=== PATIENT | female | born 1955 | race Caucasian/White ===

== ENCOUNTER 2016-06-22 09:50 | Day surgery (SDC) | payer BC ==
[~2016-06-22] VITALS: Ht 172.7 cm; Wt 94.2 kg
[~2016-06-22 09:50] MED LIST: ASPI-557 PO; LIDOCAINE 1% (10mg/ml) 2ml SDV INJ ONE; LR 1,000 ML IV SCH; PANT40TA27 PO
--- OUTSIDE RECORDS SUMMARY | 2016-06-22 09:54 | XMS REPORT | Summary of Care ---
Author Author Jeffrey Gomes M.D. Organization Unknown Address [address], [place] [id number] Phone Unavailable Care Team Providers Care Balloon Tester Name Role Phone Jeffrey Gomes M.D. Unavailable Unavailable Yazan Felix M.D. Unavailable Unavailable Sharan Cruz, Tata Unavailable Unavailable Figueroa Gomes PP Unavailable Unavailable Unavailable Functional Status Functional Status Health Issues* Name Dates Details Functional status health issues are not documented Status: Cognitive Status Health Issues* Name Dates Details Cognitive status health issues are not documented Status: Problems Name Dates Details Postmenopausal status (V49.81, Z78.0) Status: Active Insomnia (780.52, G47.00) Status: Active Arthralgia of multiple sites (719.49, M25.50) Status: Active Migraine headache (346.90, G43.909) Status: Active Allergic rhinitis (477.9, J30.9) Status: Active Esophageal reflux (530.81, K21.9) Status: Active Osteoarthritis of knee (715.36, M17.9) Status: Active Postmenopausal atrophic vaginitis (627.3, N95.2) Status: Active Eustachian tube dysfunction (381.81, H69.80) Status: Active Dyspepsia (536.8, K30) Status: Active Hypercholesterolemia (272.0, E78.0) Status: Active Dysphagia (787.20, R13.10) Status: Active Esophageal stricture (530.3, K22.2) Status: Active Tendonitis of wrist, left (727.05, M77.8) Status: Active Extensor tenosynovitis of left wrist (727.05, M65.842) Status: Active Obesity (278.00, E66.9) Status: Active Medications Name Dates Details Pantoprazole Sodium 40 MG Oral Tablet Delayed Release take one tablet by mouth every day Quantity: 30 Yazan Felix M.D.* Started 15-Nov-2010 ActiveCalcium + D 600-200 MG-UNIT TABS one tablet twice daily * Quantity: 90 Refills: 6 Kalpana Tasng M.D.* Started 15-Mar-2011 ActiveVitamin D 1000 UNIT Oral Tablet take 2 tabs dailly * Quantity: 60 Refills: 6 Kalpana Tsang M.D.* Started 15-Mar-2011 ActiveExcedrin Migraine 250-250-65 MG Oral Tablet use prn * Quantity: 60 Refills: 2 Kalpana Tsang M.D.* Started 24-Mar-2012 ActiveFluticasone Propionate 50 MCG/ACT Nasal Suspension USE 1 SPRAY IN EACH NOSTRIL TWICE DAILY. * Quantity: 1 Refills: 3 Kalpana Tsang M.D.* Started 24-Mar-2012 ActiveTylenol PM Extra Strength 500-25 MG Oral Tablet TAKE 1 TABLET Bedtime * Quantity: 30 Refills: 0 Kalpana Tsang M.D.* Started 24-Mar-2012 ActiveMucinex 600 MG Oral Tablet Extended Release 12 Hour TAKE 2 TABLETS EVERY 12 HOURS. * Quantity: 30 Refills: 6 Kalpana Tsang M.D.* Started 24-Mar-2012 ActiveZyrTEC Allergy 10 MG Oral Tablet TAKE 1 TABLET DAILY. * Quantity: 30 Refills: 6 Kalpana Tsang M.D.* Started ActiveEstrace 0.1 MG/GM Vaginal Cream APPLY A FINGERTIP AMOUNT TO VAGINAL AREA THREE TIMES PER WEEK. * Quantity: 42.5 Refills: 6 Kalpana Tsang M.D.* Started 13-Apr-2013 ActiveAtorvastatin Calcium 20 MG Oral Tablet TAKE 1 TABLET DAILY AT BEDTIME. * Quantity: 30 Refills: 3 Jeffrey Gomes M.D.* Started ActivePhentermine HCl - 37.5 MG Oral Tablet TAKE 1 TABLET DAILY DIRECTED. * Quantity: 30 Refills: 0 Jeffrey Gomes M.D.* Started 11-Jan-2015 Active Allergies and Adverse Reactions Name Dates Details No Known Drug Allergies Status: Active Past Medical History Name Dates Details History of Abdominal pain, LUQ (left upper quadrant) (789.02, R10.12) Status: Resolved History of acute pharyngitis (V12.69, Z87.09) Status: Resolved History of Biliary dyskinesia (575.8, K82.8) Status: Resolved History of Multiparity (V61.5, Z64.1) Status: Resolved History of otitis media (V12.49, Z86.69) Status: Resolved History of Pain in hand (729.5, M79.643) Status: Resolved History of tendinitis (V13.59, Z87.39) Status: Resolved History of urinary frequency (V13.09, Z87.898) Status: Resolved Procedures Procedure Dates Details History of Cholecystectomy Laparoscopic History of Knee Arthroscopy History of Diagnostic Esophagogastroduodenoscopy History of Complete Colonoscopy History of Gastroscopy With Biopsy History of Upr GI Endosc W/ Insert Guide Wire Fol By Renate Emmanuel Over Completed:15-Nov-2010 History of Vaginal Hysterectomy History of Tenodesis Of Long Biceps Tendon Completed:17-Apr-2011 History of Shldr Arthrosc W/ Distal Claviculectomy Incl Distal Art Surf Completed:17-Apr-2011 History of Shoulder Arthroscopy, Space Decompression And Acromioplasty Completed:17-Apr-2011 Procedures not documented Immunization Name Dates Details Tdap (Adacel) Administered on:1991 Hepatitis B Administered on:1991 Influenza Administered on:25-Dec-2006 Influenza Administered on:13-Jan-2010 Influenza Administered on:27-Nov-2010 Influenza Administered on:15-Dec-2012 Tdap (Adacel) #1 Lot #: [id number] Administered on:13-Apr-2013 Diphtheria-Tetanus Toxoids 6.7-5 LFU/0.5ML Intramuscular Injectable Administered on:13-Apr-2013 Prevnar 13 Intramuscular Suspension Lot #: [id number] Administered on:02-Feb-2014 Family History Unknown Family Member* Name Dates Details Family history of Hypertension (V17.49) Comments: Family History Status: Active Family history of tuberculosis (V18.8, Z83.1) Comments: Family History Status: Active Family history of coronary artery disease (V17.3, Z82.49) Comments: Family History Status: Active Grandmother* Name Dates Details Family history of Breast Cancer (V16.3) Status: Active Family history of Diabetes Mellitus (V18.0) Status: Active Mother* Name Dates Details Family history of Ovarian Cancer (V16.41) Status: Active Father* Name Dates Details Family history of coronary artery disease (V17.3, Z82.49) Status: Active Social History Name Dates Details Smoking Status* Never smoker Vital Signs Date Test Result Details 10:37 BP Systolic 143 mm[Hg] Status: BP Diastolic 83 mm[Hg] Status: Heart Rate 78 /min Status: Respiration Rate 20 /min Status: Weight 191 lb Status: Body Mass Index Calculated 29.04 kg/m2 Status: Body Surface Area Calculated 2 m2 Status: Results Date Description Value Details Results not documented Plan of Care Planned Observations* Name Dates Details Planned Goals not documented Goal Planned Encounters* Appointment; Provider: Jeffrey Gomes On 11:00 * Appointment; Provider: Schedule Radiology On 18-Nov-2014 16:30 * Appointment; Provider: Frederic Ng On 17-Apr-2011 09:30 Instructions * Instructions not documented Encounters Appointment; Jeffrey Gomes Encounter Diagnosis: Problem not documented On 10:45 Appointment; Jeffrey Gomes Encounter Diagnosis: Problem not documented On 16-Jun-2015 08:45 Appointment; Frederic Ng Encounter Diagnosis: Problem not documented On 23-May-2015 13:15 Appointment; Jeffrey Gomes Encounter Diagnosis: Problem not documented On 16-May-2015 08:45 Appointment; Jeffrey Gomes Encounter Diagnosis: Problem not documented On 13-Apr-2015 15:15 Appointment; Jeffrey Gomes Encounter Diagnosis: Problem not documented On 16-Mar-2015 15:30 Appointment; Yazan Felix Encounter Diagnosis: Problem not documented On 11-Mar-2015 09:30 Appointment; Christos Vital Encounter Diagnosis: Problem not documented On 11-Mar-2015 09:00 Appointment; Raymond Miranda Encounter Diagnosis: Problem not documented On 08-Mar-2015 11:00 Appointment; Jeffrey Gomes Encounter Diagnosis: Problem not documented On 15-Feb-2015 14:45 Appointment; Jeffrey Gomes Encounter Diagnosis: Problem not documented On 11-Jan-2015 15:15 Appointment; Kalpana Tsang Encounter Diagnosis: Problem not documented On 04-Nov-2014 15:00 Appointment; Kalpana Tsang Encounter Diagnosis: Problem not documented On 09:00 Appointment; Kalpana Tsang Encounter Diagnosis: Problem not documented On 02-Feb-2014 14:00
--- OUTSIDE RECORDS SUMMARY | 2016-06-22 09:54 | XMS REPORT | Summary of Care ---
Author Author Kalpana Tsang M.D. Organization Unknown Address [address], [place] [id number] Phone Unavailable Care Team Providers Care Drilling Fluids Specialist Name Role Phone Tata Wong M.D. Unavailable Unavailable Tata Tsang M.D. Unavailable Unavailable Kalpana Tsang PP Unavailable Unavailable Unavailable Functional Status Functional Status Health Issues* Name Dates Details Functional status health issues are not documented Status: Cognitive Status Health Issues* Name Dates Details Cognitive status health issues are not documented Status: Problems Name Dates Details Postmenopausal status (V49.81, Z78.0) Status: Active Insomnia (780.52, G47.00) Status: Active Esophageal stricture (530.3, K22.2) Status: Active Arthralgia of multiple sites (719.49, M25.50) Status: Active Postmenopausal atrophic vaginitis (627.3, N95.2) Status: Active Migraine headache (346.90, G43.909) Status: Active Allergic rhinitis (477.9, J30.9) Status: Active Esophageal reflux (530.81, K21.9) Status: Active Osteoarthritis of knee (715.36, M17.9) Status: Active Obesity (278.00, E66.9) Status: Active Eustachian tube dysfunction (381.81, H69.80) Status: Active Hypercholesterolemia (272.0, E78.0) Status: Active Medications Name Dates Details Pantoprazole Sodium 40 MG Oral Tablet Delayed Release take one tablet by mouth every day Quantity: 30 Nida Cruz* Started 15-Nov-2010 ActiveCalcium + D 600-200 MG-UNIT TABS one tablet twice daily * Quantity: 90 Refills: 6 Kalpana Tsang M.D.* Started 15-Mar-2011 ActiveVitamin D 1000 UNIT [...] AT BEDTIME. * Quantity: 30 Refills: 3 Kalpana Tsang M.D.* Started Active Allergies and Adverse Reactions Name Dates [...] W/ Insert Guide Wire Fol By Renate Su Completed:15-Nov-2010 History of Vaginal Hysterectomy History of [...] Administered on:15-Dec-2012 Tdap (Adacel) #1 Lot #: [id number] Administered on:13-Apr-2013 Diphtheria-Tetanus Toxoids 6.7-5 LFU/0.5ML Intramuscular Injectable Administered on:13-Apr-2013 Prevnar 13 Intramuscular Suspension Lot #: [id number] Administered on:02-Feb-2014 Family History Unknown Family Member* [...] smoker Vital Signs Date Test Result Details 04-Nov-2014 14:56 BP Systolic 128 mm[Hg] Status: BP Diastolic 76 mm[Hg] Status: Heart Rate 82 /min Status: Weight 211 lb Status: O2 SAT 97 % Status: Body Mass Index Calculated 32.08 kg/m2 Status: Body Surface Area Calculated 2.09 m2 Status: Results Date Description Value Details 30-Oct-2014 08:44 LIPID PROFILE 1184 Comments: Fastin hours CHOLESTEROL 165 mg/dL (Better) Range: <200 TRIGLYCERIDES 106 mg/dL (Better) Range: 30-200 HDL Cholesterol 63 mg/dL (Better) Range: >39 NON HDL CHOLESTEROL 102 (Better) CARDIAC RSK FACTOR 2.6 units (Below low threshold) Range: 4.4-5.0 LDL - CALCULATED 81 mg/dL (Better) Range: 0-130 Plan of Care Planned Observations* Name Dates Details Planned Goals not documented Goal Planned Encounters* Appointment; Provider: Frederic Ng On 17-Apr-2011 09:30 Instructions * Instructions not documented Encounters Appointment; Kalpana Tsang Encounter Diagnosis: Problem not documented On 04-Nov-2014 15:00 Appointment; Kalpana Tsang Encounter Diagnosis: Problem not documented On 09:00 Appointment; Kalpana Tsang Encounter Diagnosis: Problem not documented On 02-Feb-2014 14:00 Appointment; Kalpana Tsang Encounter Diagnosis: Problem not documented On 13-Apr-2013 09:30 Appointment; Chris Estrada Encounter Diagnosis: Problem not documented On 17-Nov-2012 10:15 Appointment; Rios Azar Encounter Diagnosis: Problem not documented On 17-Nov-2012 09:15
--- OUTSIDE RECORDS SUMMARY | 2016-06-22 09:54 | XMS REPORT | Summary of Care ---
Author Author Kalpana Tsang M.D. Organization Unknown Address [address] [place], [place] [id number] Phone Unavailable Care Team Providers Care Urban Anthropologist Name Role Phone Tata Wong M.D. Unavailable [...] Active Esophageal stricture (530.3, K22.2) Status: Active Eustachian tube dysfunction (381.81, H69.80) Status: Active Arthralgia of multiple sites (719.49, M25.50) Status: Active Postmenopausal atrophic vaginitis (627.3, N95.2) Status: Active Obesity (278.00, E66.9) Status: Active Hypercholesterolemia (272.0, E78.0) Status: Active Migraine headache (346.90, G43.909) Status: Active Allergic rhinitis (477.9, J30.9) Status: Active Esophageal reflux (530.81, K21.9) Status: Active Osteoarthritis of knee (715.96, M17.9) Status: Active Pre-op exam (V72.84, Z01.818) Status: Active Medications Name Dates Details Pantoprazole Sodium 40 MG Oral Tablet Delayed Release take one tablet by mouth every day Quantity: 30 Marvin, Nida Anthony* Started 15-Nov-2010 ActiveSimvastatin 40 MG Oral Tablet TAKE ONE TABLET BY MOUTH EVERY DAY IN THE EVENING * Quantity: 90 Refills: 3 Kalpana Tsang M.D.* Started 15-Mar-2011 ActiveCalcium + D 600-200 MG-UNIT TABS one [...] Refills: 6 Kalpana Tsang M.D.* Started 13-Apr-2013 Active Allergies and Adverse Reactions Name Dates [...] Status: Resolved History of urinary frequency (V13.09, Z87.448) Status: Resolved Procedures Procedure Dates Details History of Cholecystectomy Laparoscopic History of Knee Arthroscopy History of Vaginal Hysterectomy History of Shoulder Arthroscopy, Space Decompression And Acromioplasty Completed:17-Apr-2011 History of Shldr Arthrosc W/ Distal Claviculectomy Incl Distal Art Surf Completed:17-Apr-2011 History of Tenodesis Of Long Biceps Tendon Completed:17-Apr-2011 History of Upr GI Endosc W/ Insert Guide Wire Fol By Renate Su Completed:15-Nov-2010 History of Gastroscopy With Biopsy History of Complete Colonoscopy History of Diagnostic Esophagogastroduodenoscopy Procedures not documented Immunization Name Dates Details Tdap (Adacel) Administered on:1991 Hepatitis B Administered on:1991 Influenza Administered on:25-Dec-2006 Influenza Administered on:13-Jan-2010 Influenza Administered on:27-Nov-2010 Influenza Administered on:15-Dec-2012 Tdap (Adacel) #1 Lot #: [id number] Administered on:13-Apr-2013 Diphtheria-Tetanus Toxoids 6.7-5 LFU/0.5ML Intramuscular Injectable Administered on:13-Apr-2013 Prevnar 13 Intramuscular Suspension Lot #: [id number] Administered on:02-Feb-2014 Family History Unknown Family Member* [...] smoker Vital Signs Date Test Result Details No Known Vitals to report Results Date Description Value Details Results not documented Plan of Care Planned Observations* Name Dates Details Planned Goals not documented Goal Planned Encounters* Appointment; Provider: Kalpana Tsang On 09:00 * Appointment; Provider: Frederic Ng On 17-Apr-2011 09:30 Instructions * Instructions not documented Encounters Appointment; Kalpana Tsang Encounter Diagnosis: Problem not documented On 02-Feb-2014 14:00 Appointment; Kalpana Tsang Encounter Diagnosis: Problem not documented On 13-Apr-2013 09:30 Appointment; Chris Estrada Encounter Diagnosis: Problem not documented On 17-Nov-2012 10:15 Appointment; Rios Azar Encounter Diagnosis: Problem not documented On 17-Nov-2012 09:15 Appointment; Martin Monet Encounter Diagnosis: Problem not documented On 18-Oct-2012 10:45 Appointment; Kalpana Tsang Encounter Diagnosis: Problem not documented On 11:15 Appointment; Kalpana Tsang Encounter Diagnosis: Problem not documented On 24-Mar-2012 08:30
--- OUTSIDE RECORDS SUMMARY | 2016-06-22 09:55 | XMS REPORT | Summary of Care ---
Author Author Norm Castillo Unknown Address [address] [place], [place] [id number] Phone Unavailable Care Team Providers Care Energy Derivatives Trader Name Role Phone Eliseo Cruz, Jeffrey Baumna Unavailable Unavailable Yazan Felix M.D. Unavailable Unavailable Tata Tsang M.D. Unavailable Unavailable Berenice Cruz, Marylin Unavailable Unavailable Figueroa Gomes Unavailable Unavailable Unavailable Unavailable Functional Status Name Dates Details Functional status health issues are not documented Status: Name Dates Details Cognitive status health issues [...] Active Esophageal stricture (530.3, K22.2) Status: Active Extensor tenosynovitis of left wrist (727.05, M65.842) Status: Active Obesity (278.00, E66.9) Status: Active Tendonitis of wrist, left (727.05, M77.8) Status: Active Medications Name Dates Details Pantoprazole Sodium 40 MG Oral Tablet Delayed Release TAKE ONE TABLET BY MOUTH ONCE DAILY Quantity: 30 Yazan Felix M.D. * Start 15-Nov-2010 Active Calcium + D 600-200 MG-UNIT TABS one tablet twice daily * Quantity: 90 Refills: 6 Kalpana Tsang M.D. Start 15-Mar-2011 Active Vitamin D 1000 UNIT Oral Tablet take 2 tabs dailly * Quantity: 60 Refills: 6 Kalpana Tsang M.D. Start 15-Mar-2011 Active Excedrin Migraine 250-250-65 MG Oral Tablet use prn * Quantity: 60 Refills: 2 Kalpana Tsang M.D. Start 24-Mar-2012 Active Fluticasone Propionate 50 MCG/ACT Nasal Suspension USE 1 SPRAY IN EACH NOSTRIL TWICE DAILY. * Quantity: 1 Refills: 3 Kalpana Tsang M.D. Start 24-Mar-2012 Active Tylenol PM Extra Strength 500-25 MG Oral Tablet TAKE 1 TABLET Bedtime * Quantity: 30 Refills: 0 Kalpana Tsang M.D. Start 24-Mar-2012 Active Mucinex 600 MG Oral Tablet Extended Release 12 Hour TAKE 2 TABLETS EVERY 12 HOURS. * Quantity: 30 Refills: 6 Kalpana Tsang M.D. Start 24-Mar-2012 Active ZyrTEC Allergy 10 MG Oral Tablet TAKE 1 TABLET DAILY. * Quantity: 30 Refills: 6 Kalpana Tsang M.D. Start Active Estrace 0.1 MG/GM Vaginal Cream APPLY A FINGERTIP AMOUNT TO VAGINAL AREA THREE TIMES PER WEEK. * Quantity: 42.5 Refills: 6 Kalpana Tsang M.D. Start 13-Apr-2013 Active Atorvastatin Calcium 20 MG Oral Tablet TAKE 1 TABLET DAILY AT BEDTIME. * Quantity: 30 Refills: 3 Jeffrey Gomes M.D. Start Active Phentermine HCl - 37.5 MG Oral Tablet TAKE 1 TABLET DAILY DIRECTED. * Quantity: 30 Refills: 0 Jeffrey Gomes M.D. Start 11-Jan-2015 Active Allergies and Adverse Reactions Name Dates Details No Known Drug Allergies (Allergy) Status: Active Past Medical History Name Dates [...] Guide Wire Fol By Renate Emmanuel Over Completed: 15-Nov-2010 History of Vaginal Hysterectomy History of Tenodesis Of Long Biceps Tendon Completed: 17-Apr-2011 History of Shldr Arthrosc W/ Distal Claviculectomy Incl Distal Art Surf Completed: 17-Apr-2011 History of Shoulder Arthroscopy, Space Decompression And Acromioplasty Completed: 17-Apr-2011 Procedures not documented Immunization Name Dates Details Tdap (Adacel) on: 1991 Hepatitis B on: 1991 Influenza on: 25-Dec-2006 Influenza on: 13-Jan-2010 Influenza on: 27-Nov-2010 Influenza on: 15-Dec-2012 Tdap (Adacel) #1 Lot #: [id number] on: 13-Apr-2013 Diphtheria-Tetanus Toxoids 6.7-5 LFU/0.5ML INJ on: 13-Apr-2013 Prevnar 13 Intramuscular Suspension Lot #: [id number] on: 02-Feb-2014 Family History Name Dates Details Family history of Hypertension (V17.49) Comments: Family History Status: Active Family history of tuberculosis (V18.8, Z83.1) Comments: Family History Status: Active Family history of coronary artery disease (V17.3, Z82.49) Comments: Family History Status: Active Name Dates Details Family history of Breast Cancer (V16.3) Status: Active Family history of Diabetes Mellitus (V18.0) Status: Active Name Dates Details Family history of Ovarian Cancer (V16.41) Status: Active Name Dates Details Family history of coronary artery disease (V17.3, Z82.49) Status: Active Social History Name Dates Details - Status: Name Dates Details Never smoker Vital Signs Date Test Result Details 10:59 BP Systolic 127 mm[Hg] Status: Comments: Location: ; Position: BP Diastolic 90 mm[Hg] Status: Comments: Location: ; Position: Heart Rate 84 /min Status: Comments: Location: ; Physical Findings 20 Status: Comments: Respiration Weight 186 lb Status: Body Mass Index Calculated 28.28 kg/m2 Status: Body Surface Area Calculated 1.98 m2 Status: Results Date Description Value Details Results not documented Plan of Care Name Dates Details Planned Observations Planned Goals not documented Instructions Name Dates Details Instructions not documented Encounters Appointment; Jeffrey Gomes M.D. Encounter Diagnosis: Problem not documented On 11:00 Appointment; Frederic Ng M.D. Encounter Diagnosis: Problem not documented On 09:30 Appointment; Jeffrey Gomes M.D. Encounter Diagnosis: Problem not documented On 10:45 Appointment; Jeffrey Gomes M.D. Encounter Diagnosis: Problem not documented On 16-Jun-2015 08:45 Appointment; Frederic Ng M.D. Encounter Diagnosis: Problem not documented On 23-May-2015 13:15 Appointment; Jeffrey Gomes M.D. Encounter Diagnosis: Problem not documented On 16-May-2015 08:45 Appointment; Jeffrey Gomes M.D. Encounter Diagnosis: Problem not documented On 13-Apr-2015 15:15 Appointment; Jeffrey Gomes M.D. Encounter Diagnosis: Problem not documented On 16-Mar-2015 15:30 Appointment; Yazan Felix M.D. Encounter Diagnosis: Problem not documented On 11-Mar-2015 09:30 Appointment; Christos Vital Encounter Diagnosis: Problem not documented On 11-Mar-2015 09:00 Appointment; Raymond Miranda P.A. Encounter Diagnosis: Problem not documented On 08-Mar-2015 11:00 Appointment; Jeffrey Gomes M.D. Encounter Diagnosis: Problem not documented On 15-Feb-2015 14:45 Appointment; Jeffrey Gomes M.D. Encounter Diagnosis: Problem not documented On 11-Jan-2015 15:15 Appointment; Kalpana Tsang M.D. Encounter Diagnosis: Problem not documented On 04-Nov-2014 15:00 Appointment; Kalpana Tsang M.D. Encounter Diagnosis: Problem not documented On 09:00 Appointment; Kalpana Tsang M.D. Encounter Diagnosis: Problem not documented On 02-Feb-2014 14:00
--- OUTSIDE RECORDS SUMMARY | 2016-06-22 09:55 | XMS REPORT | Summary of Care ---
Author Author Norm Castillo Unknown Address [address] [place], [place] [id number] Phone Unavailable Care Team Providers Care Decorating Supervisor Name Role Phone Jeffrey Gomes M.D. Unavailable Unavailable Yazan Felix M.D. Unavailable Unavailable Tata Tsang M.D. Unavailable Unavailable Figueroa Gomes PP Unavailable Unavailable [...] Administered on:15-Dec-2012 Tdap (Adacel) #1 Lot #: [id number] Administered on:13-Apr-2013 Diphtheria-Tetanus Toxoids 6.7-5 LFU/0.5ML Intramuscular Injectable Administered on:13-Apr-2013 Prevnar 13 Intramuscular Suspension Lot #: [id number] Administered on:02-Feb-2014 Family History Unknown Family Member* [...] Instructions * Instructions not documented Encounters Appointment; Frederic Ng Encounter Diagnosis: Problem not documented On 09:30 Appointment; Jeffrey Gomes Encounter Diagnosis: Problem not [...]
--- OUTSIDE RECORDS SUMMARY | 2016-06-22 09:55 | XMS REPORT | Summary of Care ---
Author Author Jeffrey Gomes M.D. Organization Unknown Address [address] [place], [place] [id number] Phone Unavailable Care Team Providers Care Complementary Health Therapists Name Role Phone Jeffrey Gomes M.D. Unavailable [...] Eustachian tube dysfunction (381.81, H69.80) Status: Active Obesity (278.00, E66.9) Status: Active Dysphagia (787.20, R13.10) Status: Active Dyspepsia (536.8, K30) Status: Active [...] Shoulder Arthroscopy, Space Decompression And Acromioplasty Completed:17-Apr-2011 Upper Endoscopy ( EGD) Ordered:08-Mar-2015 CBC w/ Auto Diff 7150 Ordered:11-Mar-2015 Comprehensive Metabolic Panel 1212 Ordered:11-Mar-2015 FREE T4 3604 Ordered:11-Mar-2015 LIPID PROFILE 1184 Ordered:11-Mar-2015 THYROID STIM. HORMONE 3602 Ordered:11-Mar-2015 Urinalysis, reflex to Micro and Culture ([facility]) 8016 Ordered: Immunization Name Dates Details Tdap (Adacel) Administered on:1991 Hepatitis B Administered on:1991 Influenza Administered on:25-Dec-2006 Influenza Administered on:13-Jan-2010 Influenza Administered on:27-Nov-2010 Influenza Administered on:15-Dec-2012 Tdap (Adacel) #1 Lot #: [id number] Administered on:13-Apr-2013 Diphtheria-Tetanus Toxoids 6.7-5 LFU/0.5ML Intramuscular Injectable Administered on:13-Apr-2013 Prevnar 13 Intramuscular Suspension Lot #: [id number] Administered on:02-Feb-2014 Family History Unknown Family Member* [...] smoker Vital Signs Date Test Result Details 08-Mar-2015 11:01 BP Systolic 150 mm[Hg] Status: BP Diastolic 80 mm[Hg] Status: Heart Rate 87 /min Status: Respiration Rate 18 /min Status: Weight 199 lb Status: O2 SAT 100 % Status: Body Mass Index Calculated 30.26 kg/m2 Status: Body Surface Area Calculated 2.04 m2 Status: 15-Feb-2015 14:46 BP Systolic 121 mm[Hg] Status: BP Diastolic 77 mm[Hg] Status: Temperature 97.7 f Status: Heart Rate 81 /min Status: Respiration Rate 20 /min Status: Weight 202 lb Status: Body Mass Index Calculated 30.71 kg/m2 Status: Body Surface Area Calculated 2.05 m2 Status: Results Date Description Value Details Results not documented Plan of Care Planned Observations* Name Dates Details Planned Goals not documented Goal Planned Encounters* Appointment; Provider: Jeffrey Gomes On 16-Mar-2015 15:30 * Appointment; Provider: Yazan Felix On 11-Mar-2015 09:30 * Appointment; Provider: Christos Vital On 11-Mar-2015 09:00 * Appointment; Provider: Schedule Rad[facility] On 18-Nov-2014 16:30 * Appointment; Provider: Frederic Ng On 17-Apr-2011 09:30 Instructions * Instructions not documented Encounters Appointment; Raymond Miranda Encounter Diagnosis: Problem not [...]
--- OUTSIDE RECORDS SUMMARY | 2016-06-22 09:55 | XMS REPORT | Summary of Care ---
Author Author Jeffrey Gomes M.D. Organization Unknown Address [address], [place] [id number] Phone Unavailable Care Team Providers Care Brim Welt Sewing Machine Operator Name Role Phone Jeffrey Gomes M.D. Unavailable [...] Shoulder Arthroscopy, Space Decompression And Acromioplasty Completed:17-Apr-2011 ORTHO WRIST LEFT (2 VIEWS ONLY) Ordered:23-May-2015 Immunization Name Dates Details Tdap (Adacel) Administered on:1991 Hepatitis B Administered on:1991 Influenza Administered on:25-Dec-2006 Influenza Administered on:13-Jan-2010 Influenza Administered on:27-Nov-2010 Influenza Administered on:15-Dec-2012 Tdap (Adacel) #1 Lot #: [id number] Administered on:13-Apr-2013 Diphtheria-Tetanus Toxoids 6.7-5 LFU/0.5ML Intramuscular Injectable Administered on:13-Apr-2013 Prevnar 13 Intramuscular Suspension Lot #: [id number] Administered on:02-Feb-2014 Family History Unknown Family Member* [...] smoker Vital Signs Date Test Result Details 16-Jun-2015 08:57 BP Systolic 134 mm[Hg] Status: BP Diastolic 86 mm[Hg] Status: Temperature 98.7 f Status: Heart Rate 82 /min Status: Respiration Rate 18 /min Status: Weight 188 lb Status: Body Mass Index Calculated 28.59 kg/m2 Status: Body Surface Area Calculated 1.99 m2 Status: 23-May-2015 13:36 BP Systolic 132 mm[Hg] Status: BP Diastolic 81 mm[Hg] Status: Heart Rate 83 /min Status: Respiration Rate 16 /min Status: Results Date Description Value Details Results not documented Plan of Care Planned Observations* Name Dates Details Planned Goals not documented Goal Planned Encounters* Appointment; Provider: Jeffrey Gomes On 13-Jul-2015 14:30 * Appointment; Provider: [facility] On 18-Nov-2014 16:30 * Appointment; Provider: [...]
--- OUTSIDE RECORDS SUMMARY | 2016-06-22 09:55 | XMS REPORT | Summary of Care ---
Author Author Jeffrey Gomes M.D. Organization Unknown Address [address], [place] [id number] Phone Unavailable Care Team Providers Care Behavioral Consultant Name Role Phone Jeffrey Gomes M.D. Unavailable [...] of left wrist (727.05, M65.842) Status: Active Tendonitis of wrist, left (727.05, M77.8) Status: Active Obesity (278.00, E66.9) Status: Active Medications Name Dates Details Pantoprazole Sodium 40 MG Oral Tablet Delayed Release TAKE ONE TABLET BY MOUTH ONCE DAILY Quantity: 30 Yazan Felix M.D.* Started 15-Nov-2010 [...] Administered on:15-Dec-2012 Tdap (Adacel) #1 Lot #: [id number] Administered on:13-Apr-2013 Diphtheria-Tetanus Toxoids 6.7-5 LFU/0.5ML Intramuscular Injectable Administered on:13-Apr-2013 Prevnar 13 Intramuscular Suspension Lot #: [id number] Administered on:02-Feb-2014 Family History Unknown Family Member* [...] Details 10:59 BP Systolic 127 mm[Hg] Status: BP Diastolic 90 mm[Hg] Status: Heart Rate 84 /min Status: Respiration Rate 20 /min Status: Weight 186 lb Status: Body Mass Index Calculated 28.28 kg/m2 Status: Body Surface Area Calculated 1.98 m2 Status: Results Date Description Value Details Results not documented Plan of Care Planned Observations* Name Dates Details Planned Goals not documented Goal Planned Encounters* Appointment; Provider: [facility] On 18-Nov-2014 16:30 * Appointment; Provider: Frederic Ng On 17-Apr-2011 09:30 Instructions * Instructions not documented Encounters Appointment; Jeffrey Gomes Diagnosis: Problem not documented On 11:00 Appointment; Frederic Ng Encounter Diagnosis: Problem not [...] Problem not documented On 11-Mar-2015 09:00 Appointment; Ramyond Miranda Encounter Diagnosis: Problem not documented On [...]
--- OUTSIDE RECORDS SUMMARY | 2016-06-22 09:55 | XMS REPORT | Summary of Care ---
Author Author Jeffrey Gomes M.D. Organization Unknown Address [address], [place] [id number] Phone Unavailable Care Team Providers Care Private Investigator Surveillance Name Role Phone Jeffrey Gomes M.D. Unavailable [...] Status: Active Obesity (278.00, E66.9) Status: Active Dyspepsia (536.8, K30) Status: Active Hypercholesterolemia (272.0, E78.0) Status: Active Dysphagia (787.20, R13.10) Status: Active Esophageal stricture (530.3, K22.2) Status: Active Medications Name Dates Details Pantoprazole [...] Administered on:15-Dec-2012 Tdap (Adacel) #1 Lot #: [id number] Administered on:13-Apr-2013 Diphtheria-Tetanus Toxoids 6.7-5 LFU/0.5ML Intramuscular Injectable Administered on:13-Apr-2013 Prevnar 13 Intramuscular Suspension Lot #: [id number] Administered on:02-Feb-2014 Family History Unknown Family Member* [...] smoker Vital Signs Date Test Result Details 16-Mar-2015 15:40 BP Systolic 128 mm[Hg] Status: BP Diastolic 74 mm[Hg] Status: Heart Rate 89 /min Status: Respiration Rate 20 /min Status: Weight 200 lb Status: Body Mass Index Calculated 30.41 kg/m2 Status: Body Surface Area Calculated 2.04 m2 Status: 08-Mar-2015 11:01 BP Systolic 150 mm[Hg] Status: [...] m2 Status: Results Date Description Value Details 11-Mar-2015 08:25 CBC w/ Auto Diff 7150 Comments: Items were attached to this order: [facility]: TSH Fastin hours WBC 5.2 K/uL (Better) Range: 4.5-11.0 RBC 4.29 mil/uL (Better) Range: 3.60-5.00 HGB 13.3 g/dL (Better) Range: 12.0-16.0 HCT 41.0 % (Better) Range: 36.0-48.0 MCV 95.7 fL (Better) Range: 80.0-99.0 MCH 31.1 pg (Better) Range: 27.3-32.5 MCHC 32.5 % (Better) Range: 32.0-36.0 RDW 12.7 % (Better) Range: 11.6-14.8 PLATELETS 248 K/uL (Better) Range: 150-400 MPV 7.5 fL (Better) Range: 6.0-11.0 %NEUTRO 73.1 % (Better) Range: 37.0-80.0 %LYMPHS 17.2 % (Better) Range: 13.0-50.0 %MONO 6.8 % (Better) Range: 0.0-12.0 %EOS 1.4 % (Better) Range: 0.0-7.0 %BASO 0.5 % (Better) Range: 0.0-2.5 %LITTLE 1.0 % (Better) Range: 0.0-5.0 NEUTRO 3.8 K/uL (Better) Range: 2.0-6.9 LYMPHS 0.9 K/uL (Better) Range: 0.6-3.4 MONOS 0.4 K/uL (Better) Range: 0.0-0.9 EOS 0.1 K/uL (Better) Range: 0.0-0.7 BASO 0.0 K/uL (Better) Range: 0.0-0.2 08:35 Urinalysis, Reflex to Microscopic or Culture PRN [id number] Comments: Items were attached to this order: UA, Urinalysis Label Fastin hours pH 5.5 (Better) Range: 5.0-7.5 SP GRAVITY 1.015 (Better) Range: 1.010-1.030 APPEARANCE CLEAR (Better) Range: Clear COLOR YELLOW (Better) Range: Straw-Yellow PROTEIN NEGATIVE mg/dL (Better) Range: Negative-Trace GLUCOSE NEGATIVE mg/dL (Better) Range: Negative KETONE NEGATIVE mg/dL (Better) Range: Negative BILIRUB NEGATIVE (Better) Range: Negative BLOOD NEGATIVE (Better) Range: Negative UROBIL 0.2 EU/dL (Better) Range: 0.2-1.0 NITRITE NEGATIVE (Better) Range: Negative LEUK MODERATE (Abnormal) Range: Negative 08:35 Urine Microscopic UMIC Comments: Items were attached to this order : UA, Urinalysis Label Fastin hours WBC 6-10 /HPF (Abnormal) Range: 0-5 Comments: Specimen referred to Microbiology for Culture----- MUCUS 2+ /LPF (Better) Range: Negative-2+ BACTERIA 1+ /HPF (Abnormal) Range: Negative-Trace EPITH 0-2 /HPF (Better) Range: 0-10 08:50 Comprehensive Metabolic Panel 1212 Comments: Items were attached to this order: [facility] were attached to this order: TSH Fastin hours SODIUM 141 mmol/L (Better) Range: 133-144 POTASSIUM 4.2 mmol/L (Better) Range: 3.5-5.1 CHLORIDE 106 mmol/L (Better) Range: 98-110 CARBON DIOXIDE 24.7 mmol/L (Better) Range: 23.0-33.0 ANION GAP 10 mmol/L (Better) Range: 6-16 BUN 12 mg/dL (Better) Range: 7-18 CREATININE, SERUM 0.89 mg/dL (Better) Range: 0.55-1.02 Comments: Please note new reference ranges effective 2014.----- BUN:CREATININE RATIO 13 (Better) EST GFR, >60 ml/min (Better) Range: >60 EST GFR, NON-AFR ECUADOREAN >60 ml/min (Better) Range: >60 Comments: EST GFR is reported in ml/min per 1.73 m2 of body surface area. For -Gambian, please multiple result by 1.2.----- GLUCOSE 102 mg/dL (Above high threshold) Range: 70-100 ALK PHOSPHATASE 75 U/L (Better) Range: 46-116 TOTAL BILIRUBIN 0.30 mg/dL (Better) Range: 0.20-1.00 AST 13 U/L (Better) Range: 8-35 ALT 23 U/L (Better) Range: 14-59 Comments: Please note new reference ranges. Effective 05/13/2014.----- ALBUMIN 3.8 g/dL (Better) Range: 3.4-5.0 TOTAL PROTEIN 7.3 g/dL (Better) Range: 6.4-8.2 A/G RATIO 1.1 units (Better) Range: 1.0-1.8 CALCIUM 9.2 mg/dL (Better) Range: 8.5-10.1 08:50 LIPID PROFILE 1184 Comments: Items were attached to this order: UA for [facility] were attached to this order: TSH Fastin hours CHOLESTEROL 173 mg/dL (Better) Range: <200 TRIGLYCERIDES 76 mg/dL (Better) Range: 30-200 HDL Cholesterol 54 mg/dL (Better) Range: >39 NON HDL CHOLESTEROL 119 (Better) CARDIAC RSK FACTOR 3.2 units (Below low threshold) Range: 4.4-5.0 LDL - CALCULATED 104 mg/dL (Better) Range: 0-130 09:06 FREE T4 3604 Comments: Items were attached to this order: UA for [facility] were attached to this order: TSH Fastin hours FREE T4 1.00 ng/dL (Better) Range: 0.80-1.67 09:06 THYROID STIM. HORMONE 3602 Comments: Items were attached to this order: UA for [facility] were attached to this order: TSH Fastin hours THYROID STIM. HORMONE 1.868 uIU/mL (Better) Range: 0.550-4.780 Comments: No established reference ranges for infants and children <2 years of age----- 12-Mar-2015 11:30 URINE CULTURE [id number] Comments: Josefina performed at: [facility], [address] [place] [address], [address], In School Suspension Aide: Uvaldo Mace D.O., MPHQuest Collection Date/Time: [id number] Results Received Date/Time: [id number] Reported Date/Time: [id number] performed at: [facility], [address] [place], [address], In School Suspension Aide: Uvaldo Mace D.O., MPHQuest Collection Date/Time: [id number] Results Received Date/Time: [id number] Reported Date/Time: [id number] Fastin hours CULTURE, URINE, ROUTINE SEE NOTE (Better) Comments: CULTURE, URINE, ROUTINE MICRO NUMBER: [id number] TEST STATUS: FINAL SPECIMEN SOURCE : URINE, CLEAN CATCH SPECIMEN QUALITY: ADEQUATE RESULT: No Growth[KS]----- Plan of Care Planned Observations* Name Dates Details Planned Goals not documented Goal Planned Encounters* Appointment; Provider: Jeffrey Gomes On 13-Apr-2015 15:15 * Appointment; Provider: [facility] On 18-Nov-2014 [...]
--- OUTSIDE RECORDS SUMMARY | 2016-06-22 09:55 | XMS REPORT | Summary of Care ---
Author Author Jeffrey Gomes M.D. Organization Unknown Address [address], [place] [id number] Phone Unavailable Care Team Providers Care Hood Fitter Name Role Phone Jeffrey Gomes M.D. Unavailable [...] Active Esophageal stricture (530.3, K22.2) Status: Active Obesity (278.00, E66.9) Status: Active [...] Administered on:15-Dec-2012 Tdap (Adacel) #1 Lot #: [id number] Administered on:13-Apr-2013 Diphtheria-Tetanus Toxoids 6.7-5 LFU/0.5ML Intramuscular Injectable Administered on:13-Apr-2013 Prevnar 13 Intramuscular Suspension Lot #: [id number] Administered on:02-Feb-2014 Family History Unknown Family Member* [...] smoker Vital Signs Date Test Result Details 13-Apr-2015 15:23 BP Systolic 124 mm[Hg] Status: BP Diastolic 92 mm[Hg] Status: Heart Rate 90 /min Status: Respiration Rate 20 /min Status: Weight 196 lb Status: Body Mass Index Calculated 29.8 kg/m2 Status: Body Surface Area Calculated 2.03 m2 Status: 16-Mar-2015 15:40 BP Systolic 128 mm[Hg] Status: BP Diastolic 74 mm[Hg] Status: Heart Rate 89 /min Status: Respiration Rate 20 /min Status: Weight 200 lb Status: Body Mass Index Calculated 30.41 kg/m2 Status: Body Surface Area Calculated 2.04 m2 Status: Results Date Description Value Details [...]
--- OUTSIDE RECORDS SUMMARY | 2016-06-22 09:56 | XMS REPORT | Summary of Care ---
Author Author Kalpana Tsang M.D. Organization Unknown Address [address], [place] [id number] Phone Unavailable Care Team Providers Care Cement Car Dumper Name Role Phone Tata Wong M.D. Unavailable [...] Status: Active Obesity (278.00, E66.9) Status: Active Pre-op exam (V72.84, Z01.818) Status: Active Hypercholesterolemia (272.0, E78.0) Status: Active Migraine headache (346.90, G43.909) Status: Active Allergic rhinitis (477.9, J30.9) Status: Active Esophageal reflux (530.81, K21.9) Status: Active Osteoarthritis of knee (715.96, M17.9) Status: Active Medications Name Dates Details Pantoprazole Sodium 40 MG Oral Tablet Delayed Release take one tablet by mouth every day Quantity: 30 MarvinNida ny M.D.* Started 15-Nov-2010 ActiveSimvastatin 40 MG Oral Tablet [...] Administered on:15-Dec-2012 Tdap (Adacel) #1 Lot #: [id number] Administered on:13-Apr-2013 Diphtheria-Tetanus Toxoids 6.7-5 LFU/0.5ML Intramuscular Injectable Administered on:13-Apr-2013 Prevnar 13 Intramuscular Suspension Lot #: [id number] Administered on:02-Feb-2014 Family History Unknown Family Member* [...] not documented On 17-Nov-2012 10:15 Appointment; Rios Azra Encounter Diagnosis: Problem not documented On 17-Nov-2012 09:15 Appointment; Martin Monet Encounter Diagnosis: Problem not documented On 18-Oct-2012 10:45 Appointment; Kalpana Tsang Encounter Diagnosis: Problem not documented On 11:15 Appointment; Kalpana Tsang Encounter Diagnosis: Problem not documented On 24-Mar-2012 08:30
--- OUTSIDE RECORDS SUMMARY | 2016-06-22 09:56 | XMS REPORT ---
Author Author GENERATED, SYSTEM Organization Unknown Address Unknown Phone Unavailable Care Team Providers Care Chrome Plater Helper Name Role Phone MD LISSA, MAIA PP [phone] Reason For Visit Chief Complaint VENOUS DOPPLER EXT UNILATERAL LT LEG Social History Functional Status Vital Signs Results Problems Encounter Diagnosis No relevant problems exist. Encounters Encounter Diagnosis No relevant problems exist. Plan of Care Procedures * Completed , on 2011 12:00 AM * Completed , on 2011 12:00 AM * Completed , on 2011 12:00 AM * Completed , on 2011 12:00 AM * Completed , on 2011 12:00 AM * Completed , on 2011 12:00 AM * Completed , on 2011 12:00 AM * Completed , on 2011 12:00 AM * Completed , on 2011 12:00 AM * Completed , on 2011 12:00 AM Immunizations No immunizations administered or ordered. Hospital Course Hospital Discharge Instructions Allergies, Adverse Reactions, Alerts * Hydrocodone causes Pt does not know. * Latex Allergy has not been assessed. * IV Contrast Allergy has not been assessed. Medication Medication reconciliation has not been performed.
--- OUTSIDE RECORDS SUMMARY | 2016-06-22 09:56 | XMS REPORT | Summary of Care ---
Author Author Kalpana Tsang M.D. Organization Unknown Address [address] [place], [place] [id number] Phone Unavailable Care Team Providers Care Commercial Glazier Name Role Phone Tata Wong M.D. Unavailable [...] Shoulder Arthroscopy, Space Decompression And Acromioplasty Completed:17-Apr-2011 Comprehensive Metabolic Panel 1212 Ordered:29-Jul-2014 LIPID PROFILE 1184 Ordered:29-Jul-2014 Immunization Name Dates Details Tdap (Adacel) Administered on:1991 Hepatitis B Administered on:1991 Influenza Administered on:25-Dec-2006 Influenza Administered on:13-Jan-2010 Influenza Administered on:27-Nov-2010 Influenza Administered on:15-Dec-2012 Tdap (Adacel) #1 Lot #: [id number] Administered on:13-Apr-2013 Diphtheria-Tetanus Toxoids 6.7-5 LFU/0.5ML Intramuscular Injectable Administered on:13-Apr-2013 Prevnar 13 Intramuscular Suspension Lot #: [id number] Administered on:02-Feb-2014 Family History Unknown Family Member* [...]
--- OUTSIDE RECORDS SUMMARY | 2016-06-22 09:56 | XMS REPORT | Summary of Care ---
Author Author Kalpana Tsang M.D. Organization Unknown Address [address] [place], [place] [id number] Phone Unavailable Care Team Providers Care Director Organizational Name Role Phone Tata Wong M.D. Unavailable [...] Active Esophageal reflux (530.81, K21.9) Status: Active Hypercholesterolemia (272.0, E78.0) Status: Active Osteoarthritis of knee (715.36, M17.9) Status: Active Obesity (278.00, E66.9) Status: Active Eustachian tube dysfunction (381.81, H69.80) Status: Active Medications Name Dates Details Pantoprazole [...] Administered on:15-Dec-2012 Tdap (Adacel) #1 Lot #: [id number] Administered on:13-Apr-2013 Diphtheria-Tetanus Toxoids 6.7-5 LFU/0.5ML Intramuscular Injectable Administered on:13-Apr-2013 Prevnar 13 Intramuscular Suspension Lot #: [id number] Administered on:02-Feb-2014 Family History Unknown Family Member* [...]
--- OUTSIDE RECORDS SUMMARY | 2016-06-22 09:56 | XMS REPORT | Summary of Care ---
Author Author Nicolas Shelton D.O. Organization Unknown Address [address] [place], [place] [address] Phone Unavailable Care Team Providers Care Cementer Machine Joiner Name Role Phone Eliseo Cruz, Jeffrey Bauman Unavailable Unavailable Yara Shelton D.O. Unavailable August Felix M.D., Yazan Unavailable Unavailable Tata Tsang M.D. Unavailable Unavailable Figueroa Gomes Unavailable Unavailable Unavailable Unavailable Functional Status Name Dates Details Functional status health issues are not documented Status: Name Dates Details Cognitive status health issues are not documented Status: Problems Name Dates Details Postmenopausal status (V49.81, Z78.0) Status: Active Insomnia (780.52, G47.00) Status: Active Arthralgia of multiple sites (719.49, M25.50) Status: Active Migraine headache (346.90, G43.909) Status: Active Esophageal reflux (530.81, K21.9) Status: Active Osteoarthritis of knee (715.36, M17.9) Status: Active Postmenopausal atrophic vaginitis (627.3, N95.2) Status: Active Eustachian tube dysfunction (381.81, H69.80) Status: Active Dyspepsia (536.8, K30) Status: Active Hypercholesterolemia (272.0, E78.00) Status: Active Dysphagia (787.20, R13.10) Status: Active Esophageal stricture (530.3, K22.2) Status: Active Extensor tenosynovitis of left wrist (727.05, M65.842) Status: Active Obesity (278.00, E66.9) Status: Active Tendonitis of wrist, left (727.05, M77.8) Status: Active Right leg swelling (729.81, M79.89) Status: Active Cellulitis of lower extremity, unspecified laterality (682.6, L03.119) Status: Active Painful urination (788.1, R30.9) Status: Active UTI (urinary tract infection) (599.0, N39.0) Status: Active Acute sinusitis, recurrence not specified, unspecified location (461.9, J01.90 ) Status: Active ETD (eustachian tube dysfunction), bilateral (381.81, H69.83) Status: Active Allergic rhinitis (477.9, J30.9) Status: Active Medications Name Dates Details Pantoprazole Sodium 40 MG Oral Tablet Delayed Release TAKE ONE TABLET BY MOUTH ONCE DAILY Quantity: 30 Yazan Felix M.D. * Start 15-Nov-2010 Active Vitamin D 1000 UNIT Oral Tablet take 2 tabs dailly * Quantity: 60 Refills: 6 Kalpana Tsang M.D. * Start 15-Mar-2011 Active Excedrin Migraine 250-250-65 MG Oral Tablet use prn * Quantity: 60 Refills: 2 Kalpana Tsang M.D. * Start 24-Mar-2012 Active Tylenol PM Extra Strength 500-25 MG Oral Tablet TAKE 1 TABLET Bedtime * Quantity: 30 Refills: 0 Kalpana Tsang M.D. Start 24-Mar-2012 Active Mucinex 600 MG Oral Tablet Extended Release 12 Hour TAKE 2 TABLETS EVERY 12 HOURS. * Quantity: 30 Refills: 6 Kalpana Tsang M.D. * Start 24-Mar-2012 Active Atorvastatin Calcium 20 MG Oral Tablet TAKE 1 TABLET DAILY AT BEDTIME. * Quantity: 30 Refills: 3 Jeffrey Gomes M.D. * Start Active Amoxicillin-Pot Clavulanate 875-125 MG Oral Tablet 1 tablet BID x 10 days * Quantity: 20 Refills: 0 Nikita D.Nicolas Solis * Start 19-Apr-2016 Active PredniSONE 20 MG Oral Tablet TAKE 1 TABLET 3 times daily * Quantity: 15 Refills: 0 Shelton D.Matias., Nicolas Yara * Start 19-Apr-2016 End 24-Apr-2016 Active Allergies and Adverse Reactions Name Dates [...] on: 15-Dec-2012 Tdap (Adacel) #1 Lot #: [id number] on: 13-Apr-2013 Diphtheria-Tetanus Toxoids 6.7-5 LFU/0.5ML INJ on: 13-Apr-2013 Prevnar 13 Intramuscular Suspension Lot #: [id number] on: 02-Feb-2014 Family History Name Dates Details [...] smoker Vital Signs Date Test Result Details 19-Apr-2016 12:28 BP Systolic 118 mm[Hg] Status: Comments: Location: ; Position: BP Diastolic 66 mm[Hg] Status: Comments: Location: ; Position: Temperature 98.5 f Status: Comments: Method: Heart Rate 78 /min Status: Comments: Location: ; Height 67.5 in Status: Weight 202 lb Status: Physical Findings 94 Status: Comments: O2 Saturation Body Mass Index Calculated 31.17 kg/m2 Status: Body Surface Area Calculated 2.04 m2 Status: Results Date Description Value Details Results not documented Plan of Care Name Dates Details Planned Observations Planned Goals not documented Interventions Provided Medication Changes* Amoxicillin-Pot Clavulanate 875-125 MG Oral Tablet - Start * PredniSONE 20 MG Oral Tablet - Start Instructions Name Dates Details Instructions not documented Encounters Appointment; Kareen Wan A.P.R.N. Encounter Diagnosis: Problem not documented On 22-Nov-2015 09:05 Appointment; Real Soler M.D. Encounter Diagnosis: Problem not documented On 29-Oct-2015 08:59 Appointment; Frederic Ng M.D. Encounter Diagnosis: Problem not documented On 09:00 Appointment; Jeffrey Gomes M.D. Encounter Diagnosis: Problem [...] not documented On 16-May-2015 08:45 Appointment; Jeffrey oGmes M.D. Encounter Diagnosis: Problem not documented On 13-Apr-2015 15:15 Appointment; Jeffrey Gomes M.D. Encounter Diagnosis: Problem not documented On 16-Mar-2015 15:30 Appointment; Yazan Felix M.D. Encounter Diagnosis: Problem not documented On 11-Mar-2015 09:30 Appointment; Vital, Endoscopy Encounter Diagnosis: Problem not documented On 11-Mar-2015 [...]
--- OUTSIDE RECORDS SUMMARY | 2016-06-22 09:56 | XMS REPORT | Summary of Care ---
Author Author Kareen Wan APRN Organization Unknown Address [address] [place] [place], [place] [id number] Phone Unavailable Care Team Providers Care Director Network Development Name Role Phone Eliseo Cruz, Jeffrey Bauman Unavailable Unavailable Yazan Felix M.D. Unavailable Unavailable Kareen Wan APRN Unavailable Unavailable Tata Tsang M.D. Unavailable Unavailable [...] (urinary tract infection) (599.0, N39.0) Status: Active Medications Name Dates Details Pantoprazole [...] Quantity: 30 Refills: 0 Kalpana Tsang M.D. * Start 24-Mar-2012 Active Mucinex 600 MG Oral Tablet Extended Release 12 Hour TAKE 2 TABLETS EVERY 12 HOURS. * Quantity: 30 Refills: 6 Kalpana Tsang M.D. * Start 24-Mar-2012 Active Atorvastatin Calcium 20 MG Oral Tablet TAKE 1 TABLET DAILY AT BEDTIME. * Quantity: 30 Refills: 3 Jeffrey Gomes M.D. * Start Active Ciprofloxacin HCl - 500 MG Oral Tablet Take 1 tablet twice daily * Quantity: 10 Refills: 0 Kareen Wan APRN * Start 22-Nov-2015 End 27-Nov-2015 Active Fluconazole 150 MG Oral Tablet 1 tablet now and 1 tablet after completing the antibiotic. * Quantity: 2 Refills: 0 Kareen Wan APRN * Start 22-Nov-2015 Active Allergies and Adverse Reactions Name Dates [...] on: 15-Dec-2012 Tdap (Adacel) #1 Lot #: [id number] on: 13-Apr-2013 Diphtheria-Tetanus Toxoids 6.7-5 LFU/0.5ML INJ on: 13-Apr-2013 Prevnar 13 Intramuscular Suspension Lot #: [id number] on: 02-Feb-2014 Family History Name Dates Details [...] smoker Vital Signs Date Test Result Details 22-Nov-2015 09:09 BP Systolic 152 mm[Hg] Status: Comments: Location: ; Position: BP Diastolic 75 mm[Hg] Status: Comments: Location: ; Position: Temperature 98.8 f Status: Comments: Method: Heart Rate 76 /min Status: Comments: Location: ; Physical Findings 96 Status: Comments: O2 Saturation 29-Oct-2015 09:16 BP Systolic 122 mm[Hg] Status: Comments: Location: ; Position: BP Diastolic 70 mm[Hg] Status: Comments: Location: ; Position: Temperature 98.1 f Status: Comments: Method: Heart Rate 84 /min Status: Comments: Location: ; Physical Findings 98 Status: Comments: O2 Saturation Results Date Description Value Details 29-Oct-2015 10:17 CBC w/ Auto Diff 7150 WBC 4.1 K/uL (Below low threshold) Range: 4.5-11.0 RBC 4.22 mil/uL Range: 3.60-5.00 HGB 13.1 g/dL Range: 12.0-16.0 HCT 41.0 % Range: 36.0-48.0 MCV 97.2 fL Range: 80.0-99.0 MCH 31.0 pg Range: 27.3-32.5 MCHC 31.9 % (Below low threshold) Range: 32.0-36.0 RDW 13.6 % Range: 11.6-14.8 PLATELETS 260 K/uL Range: 150-400 MPV 7.3 fL Range: 6.0-11.0 %NEUTRO 58.1 % Range: 37.0-80.0 %LYMPHS 26.7 % Range: 13.0-50.0 %MONO 7.7 % Range: 0.0-12.0 %EOS 3.9 % Range: 0.0-7.0 %BASO 1.0 % Range: 0.0-2.5 %LITTLE 2.5 % Range: 0.0-5.0 NEUTRO 2.4 K/uL Range: 2.0-6.9 LYMPHS 1.1 K/uL Range: 0.6-3.4 MONOS 0.3 K/uL Range: 0.0-0.9 EOS 0.2 K/uL Range: 0.0-0.7 BASO 0.0 K/uL Range: 0.0-0.2 10:34 C REACTIVE PROTEIN, CRP 2030 C REACTIVE PROTEIN 0.9 mg/dL Range: 0.0-0.9 10:47 D - DIMER 7505 D-DIMER 0.21 ug/mL DDU Range: 0.00-0.26 Comments: For patients with low clinical probability of PE of DVT, D-Dimer results of 0.25 ug/mL DDU and less have an excellent negative predictive value in excluding a diagnosis of acute PE or EVT. However, a thromboembolic event cannot be excluded when D-Dimer values are greater than 0.25 ug/mL DDU.----- 22-Nov-2015 09:29 Urinalysis, Reflex to Microscopic or Culture PRN 8005 pH 6.0 Range: 5.0-7.5 SP GRAVITY 1.025 Range: 1.010-1.030 APPEARANCE TURBID (Abnormal) Range: Clear COLOR DKYELLOW (Abnormal) Range: Straw-Yellow PROTEIN >=300 mg/dL (Abnormal) Range: Negative-Trace GLUCOSE NEGATIVE mg/dL Range: Negative KETONE NEGATIVE mg/dL Range: Negative BILIRUB NEGATIVE Range: Negative BLOOD LARGE (Abnormal) Range: Negative UROBIL 1.0 EU/dL Range: 0.2-1.0 NITRITE NEGATIVE Range: Negative LEUK LARGE (Abnormal) Range: Negative 09:29 Urine Microscopic UMIC WBC TNTC /HPF (Abnormal) Range: 0-5 Comments: Specimen referred to Reference Lab for Culture----- RBC TNTC /HPF (Abnormal) Range: 0-2 BACTERIA 2+ /HPF (Abnormal) Range: Negative-Trace EPITH 0-2 /HPF Range: 0-10 Plan of Care Name Dates Details Planned Observations Planned Goals not documented Interventions Provided Medication Changes* Ciprofloxacin HCl - 500 MG Oral Tablet - Start * Fluconazole 150 MG Oral Tablet - Start Labs/Procedures/Imaging* Urinalysis, Reflex to Microscopic or Culture PRN 8005; Done: [id number] 09:00AM Instructions Name Dates Details Instructions not documented Encounters Appointment; Real Soler M.D. Encounter Diagnosis: Problem [...] Problem not documented On 11-Mar-2015 09:30 Appointment; Zahraa, Christos Encounter Diagnosis: Problem not documented On 11-Mar-2015 [...]
--- OUTSIDE RECORDS SUMMARY | 2016-06-22 09:56 | XMS REPORT | Summary of Care ---
Author Author Kalpana Tsang M.D. Organization Unknown Address [address] [place], [place] [id number] Phone Unavailable Care Team Providers Care Lead Welder Name Role Phone Ttaa Wong M.D. Unavailable Unavailable Tata Tsang M.D. [...] tablet by mouth every day Quantity: 30 August Anthony* Started 15-Nov-2010 ActiveCalcium + D 600-200 MG-UNIT TABS one tablet twice daily * Quantity: 90 Refills: 6 Kalpana Tsang M.D.* Started 15-Mar-2011 ActiveVitamin D 1000 UNIT Oral Tablet take 2 tabs dailly * Quantity: 60 Refills: 6 Kalpana Tsang M.D.* Started 15-Mar-2011 ActiveZyrTEC Allergy 10 MG Oral Tablet TAKE [...] 30 Refills: 3 Kalpana Tsang M.D.* Started ActiveMucinex 600 MG Oral Tablet Extended Release 12 Hour TAKE 2 TABLETS EVERY 12 HOURS. * Quantity: 30 Refills: 6 Kalpana Tsang M.D.* Started 24-Mar-2012 ActiveTylenol PM Extra Strength 500-25 MG Oral Tablet TAKE 1 TABLET Bedtime * Quantity: 30 Refills: 0 Kalpana Tsang M.D.* Started 24-Mar-2012 ActiveFluticasone Propionate 50 MCG/ACT Nasal Suspension USE 1 SPRAY IN EACH NOSTRIL TWICE DAILY. * Quantity: 1 Refills: 3 Kalpana Tsang M.D.* Started 24-Mar-2012 ActiveExcedrin Migraine 250-250-65 MG Oral Tablet use prn * Quantity: 60 Refills: 2 Kalpana Tsang M.D.* Started 24-Mar-2012 Active Allergies and Adverse Reactions Name Dates Details No Known Drug Allergies Status: Active Past Medical History Name Dates Details History of Abdominal pain, LUQ (left upper quadrant) (789.02, R10.12) Status: Resolved History of acute pharyngitis (V12.69, Z87.09) Status: Resolved History of Biliary dyskinesia (575.8, K82.8) Status: Resolved History of Eustachian tube dysfunction (381.81, H69.80) Status: Resolved History of Multiparity (V61.5, Z64.1) [...] Administered on:15-Dec-2012 Tdap (Adacel) #1 Lot #: [id number] Administered on:13-Apr-2013 Diphtheria-Tetanus Toxoids 6.7-5 LFU/0.5ML Intramuscular Injectable Administered on:13-Apr-2013 Prevnar 13 Intramuscular Suspension Lot #: [id number] Administered on:02-Feb-2014 Family History Unknown Family Member* [...] Planned Encounters* Appointment; Provider: Kalpana Tsang On 04-Nov-2014 15:00 * Appointment; Provider: Frederic Ng On 17-Apr-2011 [...]
--- OUTSIDE RECORDS SUMMARY | 2016-06-22 09:56 | XMS REPORT | Summary of Care ---
Author Author Jeffrey Gomes M.D. Organization Unknown Address [address] [place], [place] [id number] Phone Unavailable Care Team Providers Care First Crusher Name Role Phone Marvin Cruz, Tata Unavailable Unavailable Jeffrey Gomes M.D. Unavailable Unavailable Tata Tsang M.D. Unavailable [...] Osteoarthritis of knee (715.36, M17.9) Status: Active Hypercholesterolemia (272.0, E78.0) Status: Active Postmenopausal atrophic vaginitis (627.3, N95.2) Status: Active Eustachian tube dysfunction (381.81, H69.80) Status: Active Obesity (278.00, E66.9) Status: Active Medications Name Dates Details Pantoprazole Sodium 40 MG Oral Tablet Delayed Release take one tablet by mouth every day Quantity: 30 Nida Wong M.D.* Started 15-Nov-2010 ActiveCalcium + D 600-200 [...] ActivePhentermine HCl - 37.5 MG Oral Tablet Take 1/2 to 1 tablet daily. * Quantity: 30 Refills: 0 Jeffrey Gomes [...] Administered on:15-Dec-2012 Tdap (Adacel) #1 Lot #: [id number] Administered on:13-Apr-2013 Diphtheria-Tetanus Toxoids 6.7-5 LFU/0.5ML Intramuscular Injectable Administered on:13-Apr-2013 Prevnar 13 Intramuscular Suspension Lot #: [id number] Administered on:02-Feb-2014 Family History Unknown Family Member* [...] smoker Vital Signs Date Test Result Details 11-Jan-2015 15:35 BP Systolic 128 mm[Hg] Status: BP Diastolic 81 mm[Hg] Status: Heart Rate 66 /min Status: Respiration Rate 20 /min Status: Weight 212 lb Status: Body Mass Index Calculated 32.23 kg/m2 Status: Body Surface Area Calculated 2.1 m2 Status: Results Date Description Value Details Results not documented Plan of Care Planned Observations* Name Dates Details Planned Goals not documented Goal Planned Encounters* Appointment; Provider: Jeffrey Gomes On 15-Feb-2015 14:45 * Appointment; Provider: Abiola Nunez On 18-Nov-2014 16:30 * Appointment; Provider: Frederic [...]
--- OUTSIDE RECORDS SUMMARY | 2016-06-22 09:56 | XMS REPORT | Summary of Care ---
Author Author Nida Wong M.D. Organization Unknown Address [address] [place], [place] [phone] Phone Unavailable Care Team Providers Care Stroke Belt Sander Operator Name Role Phone Tata Wong M.D. Unavailable [...] Quantity: 30 Nida Wong M.D.* Started 15-Nov-2010 ActiveSimvastatin 40 MG Oral [...] Refills: 6 Kalpana Tsang M.D.* Started 24-Mar-2012 ActiveEstrace 0.1 MG/GM Vaginal Cream APPLY A FINGERTIP AMOUNT TO VAGINAL AREA THREE TIMES PER WEEK. * Quantity: 42.5 Refills: 6 Kalpana Tsang M.D.* Started 13-Apr-2013 ActiveZyrTEC Allergy 10 MG Oral Tablet TAKE 1 TABLET DAILY. * Quantity: 30 Refills: 6 Kalpana Tsang M.D.* Started Active Allergies and [...] Administered on:15-Dec-2012 Tdap (Adacel) #1 Lot #: [id number] Administered on:13-Apr-2013 Diphtheria-Tetanus Toxoids 6.7-5 LFU/0.5ML Intramuscular Injectable Administered on:13-Apr-2013 Prevnar 13 Intramuscular Suspension Lot #: [id number] Administered on:02-Feb-2014 Family History Unknown Family Member* [...]
--- OUTSIDE RECORDS SUMMARY | 2016-06-22 09:57 | XMS REPORT | Summary of Care ---
Author Author Jeffrey Gomes M.D. Organization Unknown Address [address] [place], [place] [phone] Phone Unavailable Care Team Providers Care Car Greaser Name Role Phone Marvin Cruz, Tata Unavailable [...] tablet by mouth every day Quantity: 30 Marvin Nida Cruz* Started 15-Nov-2010 ActiveCalcium + D [...] Administered on:15-Dec-2012 Tdap (Adacel) #1 Lot #: [id number] Administered on:13-Apr-2013 Diphtheria-Tetanus Toxoids 6.7-5 LFU/0.5ML Intramuscular Injectable Administered on:13-Apr-2013 Prevnar 13 Intramuscular Suspension Lot #: [id number] Administered on:02-Feb-2014 Family History Unknown Family Member* [...]
--- OUTSIDE RECORDS SUMMARY | 2016-06-22 09:57 | XMS REPORT | Summary of Care ---
Author Author Kalpana Tsang M.D. Organization Unknown Address [address] [place], [place] [phone] Phone Unavailable Care Team Providers Care Field Director Name Role Phone Tata Wong M.D. Unavailable [...] (272.0, E78.0) Status: Active Osteoarthritis of knee (715.96, M17.9) Status: Active Obesity (278.00, E66.9) Status: [...] Shoulder Arthroscopy, Space Decompression And Acromioplasty Completed:17-Apr-2011 LIPID PROFILE 1184 Ordered: Immunization Name Dates Details Tdap (Adacel) Administered on:1991 Hepatitis B Administered on:1991 Influenza Administered on:25-Dec-2006 Influenza Administered on:13-Jan-2010 Influenza Administered on:27-Nov-2010 Influenza Administered on:15-Dec-2012 Tdap (Adacel) #1 Lot #: [id number] Administered on:13-Apr-2013 Diphtheria-Tetanus Toxoids 6.7-5 LFU/0.5ML Intramuscular Injectable Administered on:13-Apr-2013 Prevnar 13 Intramuscular Suspension Lot #: [id number] Administered on:02-Feb-2014 Family History Unknown Family Member* [...] smoker Vital Signs Date Test Result Details 09:11 BP Systolic 126 mm[Hg] Status: BP Diastolic 76 mm[Hg] Status: Heart Rate 73 /min Status: Weight 210.375 lb Status: O2 SAT 100 % Status: Body Mass Index Calculated 31.99 kg/m2 Status: Body Surface Area Calculated 2.09 m2 Status: Results Date Description Value Details 08:22 Comprehensive Metabolic Panel 1212 Comments: Fasting : 10 hours SODIUM 138 mmol/L (Better) Range: 133-144 POTASSIUM 4.2 mmol/L (Better) Range: 3.5-5.1 CHLORIDE 104 mmol/L (Better) Range: 98-110 CARBON DIOXIDE 28.9 mmol/L (Better) Range: 23.0-33.0 ANION GAP 5 mmol/L (Below low threshold) Range: 6-16 BUN 14 mg/dL (Better) Range: 7-18 CREATININE, SERUM 0.95 mg/dL (Better) Range: 0.70-1.30 Comments: Please note new reference ranges effective 2014.----- BUN:CREATININE RATIO 15 (Better) EST GFR, >60 ml/min (Better) Range: >60 EST GFR, NON-AFR BURMESE >60 ml/min (Better) Range: >60 Comments: EST GFR is reported in ml/min per 1.73 m2 of body surface area. For -Jamaican, please multiple result by 1.2.----- GLUCOSE 91 mg/dL (Better) Range: 70-100 ALK PHOSPHATASE 57 U/L (Better) Range: 46-116 TOTAL BILIRUBIN 0.30 mg/dL (Better) Range: 0.20-1.00 AST 16 U/L (Better) Range: 8-35 ALT 18 U/L (Better) Range: 14-59 Comments: Please note new reference ranges. Effective 05/13/2014.----- ALBUMIN 3.6 g/dL (Better) Range: 3.4-5.0 TOTAL PROTEIN 7.1 g/dL (Better) Range: 6.4-8.2 A/G RATIO 1.0 units (Better) Range: 1.0-1.8 CALCIUM 9.0 mg/dL (Better) Range: 8.5-10.1 08:22 LIPID PROFILE 1184 Comments: Fastin hours CHOLESTEROL 213 mg/dL (Above high threshold) Range: <200 TRIGLYCERIDES 85 mg/dL (Better) Range: 30-200 HDL Cholesterol 55 mg/dL (Better) Range: >39 NON HDL CHOLESTEROL 158 (Better) CARDIAC RSK FACTOR 3.9 units (Below low threshold) Range: 4.4-5.0 LDL - CALCULATED 141 mg/dL (Above high threshold) Range: 0-130 Plan of Care Planned Observations* [...]
--- OUTSIDE RECORDS SUMMARY | 2016-06-22 09:57 | XMS REPORT | Summary of Care ---
Author Author Jfefrey Gomes M.D. Organization Unknown Address [address], [place] [phone] Phone Unavailable Care Team Providers Care Instrument Tester Name Role Phone Jeffrey Gomes M.D. [...] Administered on:15-Dec-2012 Tdap (Adacel) #1 Lot #: [id number] Administered on:13-Apr-2013 Diphtheria-Tetanus Toxoids 6.7-5 LFU/0.5ML Intramuscular Injectable Administered on:13-Apr-2013 Prevnar 13 Intramuscular Suspension Lot #: [id number] Administered on:02-Feb-2014 Family History Unknown Family Member* [...]
--- OUTSIDE RECORDS SUMMARY | 2016-06-22 09:57 | XMS REPORT | Summary of Care ---
Author Author Norm Castillo Unknown Address [address] [place], [place] [address] Phone Unavailable Care Team Providers Care Supervisor Cemetery Workers Name Role Phone Jeffrey Gomes M.D. Unavailable [...] of left wrist (727.05, M65.842) Status: Active Medications Name Dates Details Pantoprazole [...] Administered on:15-Dec-2012 Tdap (Adacel) #1 Lot #: [id number] Administered on:13-Apr-2013 Diphtheria-Tetanus Toxoids 6.7-5 LFU/0.5ML Intramuscular Injectable Administered on:13-Apr-2013 Prevnar 13 Intramuscular Suspension Lot #: [id number] Administered on:02-Feb-2014 Family History Unknown Family Member* [...] smoker Vital Signs Date Test Result Details 23-May-2015 13:36 BP Systolic 132 mm[Hg] Status: BP Diastolic 81 mm[Hg] Status: Heart Rate 83 /min Status: Respiration Rate 16 /min Status: 16-May-2015 08:57 BP Systolic 126 mm[Hg] Status: BP Diastolic 86 mm[Hg] Status: Heart Rate 76 /min Status: Respiration Rate 18 /min Status: Weight 191 lb Status: Body Mass Index Calculated 29.04 kg/m2 Status: Body Surface Area Calculated 2 m2 Status: Results Date Description Value Details Results not documented Plan of Care Planned Observations* Name Dates Details Planned Goals not documented Goal Planned Encounters* Appointment; Provider: Jeffrey Gomes On 13-Jun-2015 15:30 * Appointment; Provider: [facility] On 18-Nov-2014 [...]
--- OUTSIDE RECORDS SUMMARY | 2016-06-22 09:57 | XMS REPORT | Summary of Care ---
Author Author Jeffrey Gomes M.D. Organization Unknown Address [address] [place], [place] [phone] Phone Unavailable Care Team Providers Care Chief Information Security Officer Name Role Phone Marvin Cruz, Tata Unavailable [...] Administered on:15-Dec-2012 Tdap (Adacel) #1 Lot #: [id number] Administered on:13-Apr-2013 Diphtheria-Tetanus Toxoids 6.7-5 LFU/0.5ML Intramuscular Injectable Administered on:13-Apr-2013 Prevnar 13 Intramuscular Suspension Lot #: [id number] Administered on:02-Feb-2014 Family History Unknown Family Member* [...] smoker Vital Signs Date Test Result Details 15-Feb-2015 14:46 BP Systolic 121 mm[Hg] Status: [...] Planned Encounters* Appointment; Provider: Jeffrey Gomes On 14-Mar-2015 13:30 * Appointment; Provider: [facility] On 18-Nov-2014 [...]
--- OUTSIDE RECORDS SUMMARY | 2016-06-22 09:57 | XMS REPORT | Summary of Care ---
Author Author Kalpana Tsang M.D. Organization Unknown Address [address] [place], [place] [phone] Phone Unavailable Care Team Providers Care Visitor Services Information Assistant Name Role Phone Tata Wong M.D. Unavailable [...] day Quantity: 30 August Anthony* Started 15-Nov-2010 ActiveSimvastatin 40 MG Oral [...] Administered on:15-Dec-2012 Tdap (Adacel) #1 Lot #: [id number] Administered on:13-Apr-2013 Diphtheria-Tetanus Toxoids 6.7-5 LFU/0.5ML Intramuscular Injectable Administered on:13-Apr-2013 Prevnar 13 Intramuscular Suspension Lot #: [id number] Administered on:02-Feb-2014 Family History Unknown Family Member* [...] ml/min (Better) Range: >60 EST GFR, NON-AFR CONGOLESE >60 ml/min (Better) Range: >60 Comments: EST GFR is reported in ml/min per 1.73 m2 of body surface area. For -Filipino, please multiple result by 1.2.----- GLUCOSE 91 [...] documented Goal Planned Encounters* Appointment; Provider: Kalpana Tasng On 04-Nov-2014 15:00 * Appointment; Provider: Frederic [...]
--- OUTSIDE RECORDS SUMMARY | 2016-06-22 09:57 | XMS REPORT | Summary of Care ---
Author Author Kareen Wan APRN Organization Unknown Address [address] [place] [address] Phone Unavailable Care Team Providers Care Actimize Architect Name Role Phone Eliseo Cruz, Jeffrey Bauman [...] on: 15-Dec-2012 Tdap (Adacel) #1 Lot #: [id number] on: 13-Apr-2013 Diphtheria-Tetanus Toxoids 6.7-5 LFU/0.5ML INJ on: 13-Apr-2013 Prevnar 13 Intramuscular Suspension Lot #: [id number] on: 02-Feb-2014 Family History Name Dates Details [...] Range: Negative-Trace EPITH 0-2 /HPF Range: 0-10 24-Nov-2015 08:46 URINE CULTURE [id number] Comments: [facility] at: [facility], [address] [place] [address], [address], Laboratory Machinist: Uvaldo Mace D.O., MPHQuest Collection Date/Time: [id number] Results Received Date/Time: [id number] Reported Date/Time: FASTING:NOQuest performed at: [facility], [place], [address], Laboratory Machinist: Uvaldo Mace D.O., MPHQuest Collection Date/Time: [id number] Results Received Date/Time: [id number] Reported Date/Time: FASTING:NOQuest performed at: [facility], [address] [place], [address], Laboratory Machinist: Uvaldo Mace D.O., MPHQuest Collection Date/Time: [id number] Results Received Date/Time: [id number] Reported Date/Time: FASTING:NO CULTURE, URINE, ROUTINE SEE NOTE (Abnormal) Comments: CULTURE, URINE, ROUTINE MICRO NUMBER: [id number] TEST STATUS: FINAL SPECIMEN SOURCE : URINE SPECIMEN QUALITY: ADEQUATE RESULT: 50,000-100,000 CFU/ mL of Escherichia coli E.coli INT YAKOV AMOX/CLAVULANATE R >=32 AMPICILLIN R >=32 AMP/SULBACTAM R >= 32 CEFAZOLIN NR <=4 1 CEFEPIME S <=1 CEFTRIAXONE S <=1 CIPROFLOXACIN S <=0.25 ERTAPENEM S <=0.5 GENTAMICIN S <=1 IMIPENEM S <=0.25 LEVOFLOXACIN S <=0.12 NITROFURANTOIN S <=16 PIP/TAZOBACTAM S 8 TOBRAMYCIN S <=1 TRIMETHOPRIM/SULFA R >=320S=Susceptible I= Intermediate R=Resistant *=Not TestedNR=Not Reported NN=See Therapy CommentsTHERAPY COMMENTS Note 1: ORAL therapy: A cefazolin YAKOV of < 32 predicts susceptibility to the oral agents cefaclor, cefdinir, cefpodoxime , cefprozil, cefuroxime, cephalexin, and loracarbef when used for therapy of uncomplicated UTIs due to E. coli, K. pneumoniae, and P. mirabilis. PARENTERAL therapy: A cefazolin YAKOV of > 8 indicates resistance to parenteral cefazolin. An alternate test method must be performed to to confirm susceptibility to parenteral cefazolin.[KS]----- Plan of Care Name Dates Details Planned Observations Planned Goals not documented Interventions Provided Medication Changes* Ciprofloxacin HCl - 500 MG Oral Tablet - Start * Fluconazole 150 MG Oral Tablet - Start Labs/Procedures/Imaging* Urinalysis, Reflex to Microscopic or Culture PRN [id number]; Done: 22Nov2015 09:00AM Instructions Name Dates Details Instructions not [...]
--- OUTSIDE RECORDS SUMMARY | 2016-06-22 09:58 | XMS REPORT | Summary of Care ---
Author Author Kalpana Tsang M.D. Organization Unknown Address [address] [place], [place] [phone] Phone Unavailable Care Team Providers Care Transfer Car Operator Name Role Phone Tata Wong M.D. [...] Administered on:15-Dec-2012 Tdap (Adacel) #1 Lot #: [id number] Administered on:13-Apr-2013 Diphtheria-Tetanus Toxoids 6.7-5 LFU/0.5ML Intramuscular Injectable Administered on:13-Apr-2013 Prevnar 13 Intramuscular Suspension Lot #: [id number] Administered on:02-Feb-2014 Family History Unknown Family Member* [...]
--- OUTSIDE RECORDS SUMMARY | 2016-06-22 09:58 | XMS REPORT | Summary of Care ---
Author Author Jeffrey Gomes M.D. Organization Unknown Address [address] [place], [place] [phone] Phone Unavailable Care Team Providers Care Fire Manager Name Role Phone Jeffrey Gomes M.D. Unavailable [...] Bedtime * Quantity: 30 Refills: 0 Kalpana Tsagn M.D.* Started 24-Mar-2012 ActiveMucinex 600 MG Oral [...] Administered on:15-Dec-2012 Tdap (Adacel) #1 Lot #: [id number] Administered on:13-Apr-2013 Diphtheria-Tetanus Toxoids 6.7-5 LFU/0.5ML Intramuscular Injectable Administered on:13-Apr-2013 Prevnar 13 Intramuscular Suspension Lot #: [id number] Administered on:02-Feb-2014 Family History Unknown Family Member* [...]
--- OUTSIDE RECORDS SUMMARY | 2016-06-22 09:58 | XMS REPORT | Summary of Care ---
Author Author Jeffrey Gomes M.D. Organization Unknown Address [address], [place] [address] Phone Unavailable Care Team Providers Care Renewable Energy Trader Name Role Phone Jeffrey Gomes M.D. Unavailable [...] Administered on:15-Dec-2012 Tdap (Adacel) #1 Lot #: [id number] Administered on:13-Apr-2013 Diphtheria-Tetanus Toxoids 6.7-5 LFU/0.5ML Intramuscular Injectable Administered on:13-Apr-2013 Prevnar 13 Intramuscular Suspension Lot #: [id number] Administered on:02-Feb-2014 Family History Unknown Family Member* [...] Planned Encounters* Appointment; Provider: Jeffrey Gomes On 11-May-2015 13:45 * Appointment; Provider: [facility] On 18-Nov-2014 [...]
--- OUTSIDE RECORDS SUMMARY | 2016-06-22 09:58 | XMS REPORT | Summary of Care ---
Author Kalpana Michelle M.D. Organization Unknown Address Unknown Phone Unavailable Care Team Providers Care Financial Compliance Examiner Name Role Phone Kalpana Tsang Unavailable Unavailable Unavailable Unavailable Functional Status Functional Status Health Issues* Name Dates Details No known functional status health issues Status: Cognitive Status Health Issues* Name Dates Details No known cognitive status health issues Status: Problems Name Dates Details Postmenopausal status (V49.81, Z78.0) Status: Active Insomnia (780.52, G47.00) Status: Active Esophageal stricture (530.3, K22.2) Status: Active Otitis media (382.9, H66.90) Status: Active Esophageal reflux (530.81, K21.9) Status: Active Eustachian tube dysfunction (381.81, H69.80) Status: Active External hemorrhoids (455.3, K64.8) Status: Active Osteoarthritis of knee (715.96, M17.9) Status: Active Arthralgia of multiple sites (719.49, M25.50) Status: Active Migraine headache (346.90, G43.909) Status: Active Hypercholesterolemia (272.0, E78.0) Status: Active Postmenopausal atrophic vaginitis (627.3, N95.2) Status: Active Obesity (278.00, E66.9) Status: Active Medications Name Dates Details Pantoprazole Sodium 40 MG Oral Tablet Delayed Release take one tablet by mouth every day Quantity: 30 Tablet Delayed Release * Started 15-Nov-2010 ActiveCalcium + D 600-200 MG-UNIT TABS one tablet twice daily * Quantity: 90 Tablet Refills: 6 * Started 15-Mar-2011 ActiveVitamin D 1000 UNIT Oral Tablet take 2 tabs dailly * Quantity: 60 Tablet Refills: 6 * Started 15-Mar-2011 ActiveFluticasone Propionate 50 MCG/ACT Nasal Suspension USE 1 SPRAY IN EACH NOSTRIL TWICE DAILY. * Quantity: 1 GM Refills: 3 * Started 24-Mar-2012 ActiveZyrTEC Allergy 10 MG Oral Tablet TAKE 1 TABLET DAILY. * Quantity: 30 Tablet Refills: 6 * Started ActiveEstrace 0.1 MG/GM Vaginal Cream APPLY A FINGERTIP AMOUNT TO VAGINAL AREA THREE TIMES PER WEEK. * Quantity: 42.5 GM Refills: 6 * Started 13-Apr-2013 ActiveMucinex 600 MG Oral Tablet Extended Release 12 Hour TAKE 2 TABLETS EVERY 12 HOURS. * Quantity: 30 Tablet Extended Release 12 Hour Refills: 6 * Started 24-Mar-2012 ActiveTylenol PM Extra Strength 500-25 MG Oral Tablet TAKE 1 TABLET Bedtime * Quantity: 30 Tablet Refills: 0 * Started 24-Mar-2012 ActiveExcedrin Migraine 250-250-65 MG Oral Tablet use prn * Quantity: 60 Tablet Refills: 2 * Started 24-Mar-2012 ActiveSimvastatin 40 MG Oral Tablet TAKE ONE TABLET BY MOUTH EVERY DAY IN THE EVENING * Quantity: 90 EA Refills: 3 * Started 15-Mar-2011 Active Allergies and Adverse Reactions Name Dates Details No Known Drug Allergies Status: Active Past Medical History Name Dates Details Complete Colonoscopy Status: Resolved Upr GI Endosc W/ Insert Guide Wire Fol By Dilat Esoph Over Status: Resolved Pain in hand (729.5, M79.643) Status: Resolved Abdominal pain, LUQ (left upper quadrant) (789.02, R10.12) Status: Resolved History of urinary frequency (V13.09, Z87.448) Status: Resolved Multiparity (V61.5, Z64.1) Status: Resolved Biliary dyskinesia (575.8, K82.8) Status: Resolved History of tendinitis (V13.59, Z87.39) Status: Resolved History of acute pharyngitis (V12.69, Z87.09) Status: Resolved Procedures Procedure Dates Details Cholecystectomy Laparoscopic Knee Arthroscopy Esophagogastroduodenoscopy Gastroscopy With Biopsy Vaginal Hysterectomy Tenodesis Of Long Biceps Tendon Completed:17-Apr-2011 Shldr Arthrosc W/ Distal Claviculectomy Incl Distal Art Surf Completed:Apr-2011 Shoulder Arthroscopy, Space Decompression And Acromioplasty Completed:Apr-2011 MAMMOGRAM-SCREENING Immunization Name Dates Details Tdap (Adacel) Hepatitis B Influenza Influenza Influenza Administered on:27-Nov-2010 Influenza Administered on:15-Dec-2012 Tdap (Adacel) #1 Lot #: [id number] Administered on:13-Apr-2013 Diphtheria-Tetanus Toxoids 6.7-5 LFU/0.5ML Intramuscular Injectable Administered on:13-Apr-2013 Family History Unknown Family Member* Name Dates Details Breast Cancer (V16.3) Comments: Family History Status: Active Diabetes Mellitus (V18.0) Comments: Family History Status: Active Hypertension (V17.49) Comments: Family History Status: Active Ovarian Cancer (V16.41) Comments: Family History Status: Active Family history of tuberculosis (V18.8, Z83.1) Comments: Family History Status: Active Family history of coronary artery disease (V17.3, Z82.49) Comments: Family History Status: Active Social History Name Dates Details Never smoked Smoking Status* Never smoker Vital Signs Date Test Result Details No Known Vitals to report Results Date Description Value Details Results not documented Plan of Care Instructions* Instructions not documented Planned Observations* Name Dates Details Planned Goals not documented Goal Planned Encounters* Appointment; Provider: Rios Azar On 23-Nov-2013 09:15 * Appointment; Provider: Frederic Ng On 17-Apr-2011 09:30 Instructions * No Known Instructions Encounters Appointment; Kalpana Tsang Encounter Diagnosis: Problem [...] Diagnosis: Problem not documented On 24-Mar-2012 08:30 Appointment; Kalpana Tsang Encounter Diagnosis: Problem not documented On 05-Feb-2012 13:30 Appointment; Rios Azar Encounter Diagnosis: Problem not documented On 12-Nov-2011 09:00 Appointment; Chris Estrada Encounter Diagnosis: Problem not documented On 20-Oct-2011 08:00
--- OUTSIDE RECORDS SUMMARY | 2016-06-22 09:58 | XMS REPORT | Summary of Care ---
Author Author Real Soler M.D. Unknown Address Unknown Phone Unavailable Care Team Providers Care Speeder Frame Tender Name Role Phone Jeffrey Gomes M.D. Unavailable Unavailable Yazan Felix M.D. Unavailable Unavailable Tata Tsang M.D. Unavailable Unavailable Charly Soler M.D. Unavailable Unavailable Figueroa Gomes Unavailable Unavailable [...] extremity, unspecified laterality (682.6, L03.119) Status: Active Medications Name Dates Details Pantoprazole [...] use prn * Quantity: 60 Refills: 2 Sharan Cruz, Kalpana Payton * Start 24-Mar-2012 Active Tylenol PM Extra [...] 3 Jeffrey Gomes M.D. * Start Active Phentermine HCl - 37.5 MG Oral Tablet TAKE 1 TABLET DAILY DIRECTED. * Quantity: 30 Refills: 0 Jeffrey Gomes M.D. * Start 11-Jan-2015 Active Cephalexin 500 MG Oral Capsule Take 1 four times daily. * Quantity: 40 Refills: 0 Real Soler M.D. * Start 29-Oct-2015 Active Allergies and Adverse Reactions Name Dates [...] Insert Guide Wire Fol By Renate Su Completed: 15-Nov-2010 History of Vaginal Hysterectomy History [...] on: 15-Dec-2012 Tdap (Adacel) #1 Lot #: [id number] on: 13-Apr-2013 Diphtheria-Tetanus Toxoids 6.7-5 LFU/0.5ML INJ on: 13-Apr-2013 Prevnar 13 Intramuscular Suspension Lot #: [id number] on: 02-Feb-2014 Family History Name Dates Details [...] smoker Vital Signs Date Test Result Details 29-Oct-2015 09:16 BP Systolic 122 mm[Hg] Status: [...] values are greater than 0.25 ug/mL DDU.----- Plan of Care Name Dates Details Planned Observations Planned Goals not documented Interventions Provided Medication Changes* Cephalexin 500 MG Oral Capsule - Start Labs/Procedures/Imaging* C REACTIVE PROTEIN, CRP 2030; Done: Oct 29 2015 10:11AM * CBC w/ Auto Diff 7150; Done: Oct 29 2015 10:11AM * D - DIMER 7505; Done: Oct 29 2015 10:11AM Instructions Name Dates Details Instructions not documented Encounters Appointment; Frederic Ng M.D. Encounter Diagnosis: Problem [...]
--- OUTSIDE RECORDS SUMMARY | 2016-06-22 09:58 | XMS REPORT | Summary of Care ---
Author Author Isidro Cruz, Yazan Combs Unknown Address [address], [place] [id number] Phone Unavailable Care Team Providers Care Foreign Student Adviser Name Role Phone Jeffrey Gomes M.D. Unavailable [...] Acromioplasty Completed:17-Apr-2011 Upper Endoscopy ( EGD) Ordered:08-Mar-2015 Immunization Name Dates Details Tdap (Adacel) Administered on:1991 Hepatitis B Administered on:1991 Influenza Administered on:25-Dec-2006 Influenza Administered on:13-Jan-2010 Influenza Administered on:27-Nov-2010 Influenza Administered on:15-Dec-2012 Tdap (Adacel) #1 Lot #: [id number] Administered on:13-Apr-2013 Diphtheria-Tetanus Toxoids 6.7-5 LFU/0.5ML Intramuscular Injectable Administered on:13-Apr-2013 Prevnar 13 Intramuscular Suspension Lot #: [id number] Administered on:02-Feb-2014 Family History Unknown Family Member* [...] attached to this order: [facility] were [facility] to this order: TSH [...] were attached to this order: UA for [facility] were attached to this order: TSH [...] ml/min (Better) Range: >60 EST GFR, NON-AFR SWISS >60 ml/min (Better) Range: >60 Comments: EST GFR is reported in ml/min per 1.73 m2 of body surface area. For -Slovak, please multiple result by 1.2.----- GLUCOSE 102 [...] were attached to this order: UA for [facility] were attached to this order: TSH [...] were attached to this order: UA for [facility] were attached to this order: TSH Fastin hours FREE T4 1.00 ng/dL (Better) Range: 0.80-1.67 09:06 THYROID STIM. HORMONE 3602 Comments: Items were attached to this order: [facility] were attached to this order: TSH Fastin hours THYROID STIM. HORMONE 1.868 uIU/mL (Better) Range: 0.550-4.780 Comments: No established reference ranges for infants and children <2 years of age----- Plan of Care Planned Observations* Name Dates Details Planned Goals not documented Goal Planned Encounters* Appointment; Provider: Jeffrey Gomes On 16-Mar-2015 15:30 * Appointment; Provider: Abiola Nunez On 18-Nov-2014 16:30 * Appointment; Provider: Frederic Ng On 17-Apr-2011 09:30 Instructions * Instructions not documented Encounters Appointment; Yazan Felix Encounter Diagnosis: Problem not [...]
--- OUTSIDE RECORDS SUMMARY | 2016-06-22 09:58 | XMS REPORT | Summary of Care ---
Author Author Jeffrey Gomes M.D. Organization Unknown Address [address], [place] [id number] Phone Unavailable Care Team Providers Care Lot Technician Name Role Phone Jeffrey Gomes M.D. Unavailable [...] Administered on:15-Dec-2012 Tdap (Adacel) #1 Lot #: [id number] Administered on:13-Apr-2013 Diphtheria-Tetanus Toxoids 6.7-5 LFU/0.5ML Intramuscular Injectable Administered on:13-Apr-2013 Prevnar 13 Intramuscular Suspension Lot #: [id number] Administered on:02-Feb-2014 Family History Unknown Family Member* [...] smoker Vital Signs Date Test Result Details 16-May-2015 08:57 BP Systolic 126 mm[Hg] Status: [...] not documented Goal Planned Encounters* Appointment; Provider: Schedule Radiology On 18-Nov-2014 16:30 [...]
--- OUTSIDE RECORDS SUMMARY | 2016-06-22 09:59 | XMS REPORT | Summary of Care ---
Author Author Frederic Ng M.D. Unknown Address Unknown Phone Unavailable Care Team Providers Care Store Shopper Name Role Phone Jeffrey Gomes M.D. Unavailable [...] Administered on:15-Dec-2012 Tdap (Adacel) #1 Lot #: [id number] Administered on:13-Apr-2013 Diphtheria-Tetanus Toxoids 6.7-5 LFU/0.5ML Intramuscular Injectable Administered on:13-Apr-2013 Prevnar 13 Intramuscular Suspension Lot #: [id number] Administered on:02-Feb-2014 Family History Unknown Family Member* [...] Planned Encounters* Appointment; Provider: Frederic Ng On 09:00 * Appointment; Provider: Schedule Radiology On 18-Nov-2014 16:30 * Appointment; Provider: Frederic Ng On 17-Apr-2011 09:30 Instructions * Instructions not documented Encounters Appointment; Jeffrey Gomes Encounter Diagnosis: Problem not documented On 11:00 [...] Problem not documented On 13-Apr-2015 15:15 Appointment; eJffrey Gomes Encounter Diagnosis: Problem not documented On 16-Mar-2015 15:30 Appointment; Yazan Felix Encounter Diagnosis: Problem not documented On 11-Mar-2015 09:30 Appointment; Christos Vital Encounter Diagnosis: Problem not documented On 11-Mar-2015 09:00 Appointment; Raymond Mirnada Encounter Diagnosis: Problem not documented On 08-Mar-2015 [...]
--- OUTSIDE RECORDS SUMMARY | 2016-06-22 09:59 | XMS REPORT | Summary of Care ---
Author Author Raymond Lopes Unknown Address [address] [place], [place] [id number] Phone Unavailable Care Team Providers Care Manager Metrology Name Role Phone Tata Wong M.D. Unavailable Jeffrey Mario M.D. Unavailable Unavailable Tata Tsang M.D. Unavailable [...] Status: Active Dyspepsia (536.8, K30) Status: Active Medications Name Dates Details Pantoprazole [...] And Acromioplasty Completed:17-Apr-2011 Upper Endoscopy ( EGD) Pendin08-Mar-2015 Immunization Name Dates Details Tdap (Adacel) Administered on:1991 Hepatitis B Administered on:1991 Influenza Administered on:25-Dec-2006 Influenza Administered on:13-Jan-2010 Influenza Administered on:27-Nov-2010 Influenza Administered on:15-Dec-2012 Tdap (Adacel) #1 Lot #: [id number] Administered on:13-Apr-2013 Diphtheria-Tetanus Toxoids 6.7-5 LFU/0.5ML Intramuscular Injectable Administered on:13-Apr-2013 Prevnar 13 Intramuscular Suspension Lot #: [id number] Administered on:02-Feb-2014 Family History Unknown Family Member* [...]
[2016-06-22 10:25] VITALS: BP 118/77; PULSE 70; RESP 14; TEMP 98.2; O2SAT 97; Ht 172.7 cm; Wt 94.2 kg
--- NOTE | 2016-06-22 11:12 | ANESPREOP ---
Anesthesia Record Date and Time DATE: 06/22/16 TIME: 11:09 Pre-Op Diagnosis dysphagia Proposed Surgical Procedure EGD Allergies: Coded Allergies: No Known Allergies (Unverified , 06/22/16) Ht/Wt/BMI Height: 5 ' 8.00 " Weight: 94.200 kg BMI: 31.6 kg/m2 Vital Signs Date Time Temp Pulse Resp B/P Pulse Ox O2 Delivery O2 Flow Rate FiO2 06/22/16 10:25 98.2 70 14 118/77 97 Room Air Medications Inpatient Medications Current Medications Medications (Trade) Dose Ordered Sig/Norman Start Time Stop Time Status Last Admin Dose Admin Lactated Ringer's (Lactated Ringers) 1,000 ml @ 30 mls/hr Q24H 06/22/16 07:00 Aspirin (Aspir 81) 81 Mg Tablet.dr, 1 TAB PO DAILY, (Reported) Last Taken: on 06/20/16 Pantoprazole Sodium (Pantoprazole Sodium) 40 Mg Tablet.dr, 1 TAB PO DAILY, (Reported) Currently on Beta Alvin: No Medical/Surgical History Anesthesia PMH: Reports: *Hypertension, Arthritis (KNEES, L HAND), Obesity, Reflux, Denies: *Diabetes, Anesthesia Reactions (NO AIRWAY ISSUES- N&V), Cancer , Clotting Problems, Glaucoma, Malignant Hyperthermia, Renal Disease, Thyroid Disease Smoking Status: Never smoker Has pt. smoked today?: No Use Chewing Tobacco?: No Second Hand Exposure: No Substance Use Type: does not use Substance last used: unknown Alcohol Intake: rarely Last Drink: unknown HX of Last Menstrual Period: AGE 41 Past Surgical History Orthopedic Surgeries: Yes - LTK, L HAND RECONSTRUCTION, R SHOULDER SCREW Abdominal Surgeries: Genitourinary Surgeries: Cardiac Surgeries: Endocrine Surgeries: Reproductive Surgeries: Yes - HYSTERECTOMY Neurological Surgeries: Ear Surgeries: Nose Surgeries: Throat Surgeries: Other Surgeries: Yes - EGD, HOLLY Anesthesia Adverse Reactions: FOUND nausea and vomiting Family Hx of Anesthesia Advers: none Hx of Motion Sickness: No Pertinent Findings EKG Rhythm: Sinus Rhythm Physical Exam Respiratory: Bilat breath sounds equal, Lungs clear Cardiovascular: FOUND Regular rate, rhythm, FOUND No murmur Airway Assessment Mallampati Score: II TMD: 3 Fingerbreadths Overall Assessment: No Airway Concerns ASA: 2 Plan Anesthesia Plan: TIVA Discussion Discussed risks/options/alternatives of anesthesia and questions answered. Patient consents. Nursing pain assessment noted. Attestation Statement Prior to the delivery of any anesthetic medication, I examined the patient, developed the plan, obtained the patient's consent and discussed the risk and benefits of the procedure with the patient/guardian. CARMEN HENSON CRNA Jun 22, 2016 11:12
[2016-06-22] MEDS ORDERED: LIDOCAINE 1% (10mg/ml) 2ml SDV ONE (11:47)
[2016-06-22] MEDS ORDERED: PROPOFOL 500mg 50 ML IV ONE (11:47)
[2016-06-22] MEDS ORDERED: ONDANSETRON 4mg/2ml INJECTION ONE (11:47)
--- NOTE | 2016-06-22 11:54 | ANESPO ---
Post-Op Note Date 06/22/16 Time: 11:52 Status Pt Participated in Evaluation: Pt participated in person Vital Signs Date Time Temp Pulse Resp B/P Pulse Ox O2 Delivery O2 Flow Rate FiO2 06/22/16 10:25 98.2 70 14 118/77 97 Room Air Respiratory Function: Airway patent, Regular respirations Cardiovascular Function: Regular pulse Mental Status: Alert/oriented Pain Level Intensity: 0 Hydration: Taking po fluids, IV infusing Complications during Recovery None apparent Post-Anesthesia Notes pt. [email or web address] Follow-Up Instructions Instructions Per Surgeon Additional Information none CARMEN HENSON CRNA Jun 22, 2016 11:54
[2016-06-22] MEDS ORDERED: LIDOCAINE VISCOUS 2% Oral Soln 15ml UD ONE (12:03)
[2016-06-22 12:22] VITALS: BP 118/65; PULSE 77; RESP 23; TEMP 98.5; O2SAT 95
[2016-06-22 12:25] VITALS: BP 118/65; PULSE 77; RESP 23; TEMP 98.5; O2SAT 95
[2016-06-22] MEDS ORDERED: SUCR1TAB PO (12:32)
[2016-06-22 12:40] VITALS: BP 120/70; PULSE 66; RESP 20; O2SAT 99
[2016-06-22 12:55] VITALS: BP 126/65; PULSE 56; RESP 20; O2SAT 95
--- NOTE | 2016-06-23 08:14 | OPNOTEF ---
DATE OF SERVICE 06/22/2016 SURGEON Loco Hoffman MD PREOPERATIVE DIAGNOSIS Personal history for recurrent dysphagia, personal history for esophageal strictures. POSTOPERATIVE DIAGNOSIS Personal history for recurrent dysphagia, personal history for esophageal strictures, distal esophagitis with associated ulceration and a component of stricture. PROCEDURE Esophagogastroduodenoscopy with biopsies from distal esophagus via cold biopsy technique, sequential balloon dilatation of distal esophagus to 54-Moroccan. ANESTHESIA TIVA. BRIEF HISTORY/INDICATIONS Mrs. Simmons is a 61-year-old female who was recently sent to my office as a result of her history for recurrent dysphagia. Patient states that she has had some "problems swallowing" in the past and has underwent "prior stretching of her esophagus" in the past as well at [place], [place]. Patient states that recently she has developed recurrent dysphagia and brought this to the attention of her primary care physician. Patient presents today to undergo repeat EGD with probable dilatation. For completeness please refer to notes included in the patient's chart. FINDINGS Upon upper endoscopy esophagus, stomach, and duodenum were found to be essentially within normal limits with the exception of the distal esophagus. The patient was found to have a small ulceration involving the distal esophagus. There did appear to be an associated stricture also involving the distal esophagus. Otherwise esophagus, stomach, and duodenum were found to be within normal limits. DESCRIPTION OF PROCEDURE After informed consent was obtained, patient was brought to the endoscopy suite and placed on the table in a left lateral cubitus position. Patient subsequently underwent total intravenous anesthesia by the nurse preschool teacher at my request. Formal time-out was then completed. Next an Olympus gastroscope was inserted into the oral hypopharynx and subsequently the esophagus under direct visualization. Gastroscope was then advanced in the esophagus, stomach, pylorus, duodenal bulb, second portion of the duodenum. Scope was slowly withdrawn. First and second portion of the duodenum were within normal limits. There was no evidence of duodenitis or ulcerations. Scope was withdrawn back into the prepyloric region in the antrum. Again no marked mucosal abnormalities were noted. A J-maneuver was then performed. Cardia and fundus were within normal limits. Endoscopically there was no evidence for a hiatal hernia. Scope was allowed to straighten and slowly withdrawn. The remaining corpus of the stomach was well visualized again without noted abnormalities. Scope was withdrawn back to the level of the diaphragm. The squamocolumnar junction was located at the level of the diaphragm. As stated above, there was a small ulceration involving the distal esophagus. There was a white plaque-like material overlying the ulcer bed. This ulcer was fairly small and on the order of about 5 to 8 mm in diameter. There was some associated erythema as well involving the distal esophagus. Several biopsies were obtained from the distal esophagus via cold biopsy technique. It did appear as well that the distal esophageal lumen was somewhat narrowed. Scope was then slowly withdrawn back up into the cervical esophagus. No additional mucosal abnormalities were noted. Next, the scope was then re-advanced back to the distal esophagus. A balloon was then placed at the GE junction and sequentially dilated up to a 54-Moroccan. This did result in dilatation of the distal esophagus. There was, however, no evidence for mucosal tear or perforation. Balloon was then left inflated and withdrawn back up into cervical esophagus region. Balloon was then deflated. It was withdrawn through the cricopharyngeal region. Patient tolerated the procedure without difficulty and was sent back to preop area in stable condition. Await the biopsy results from today's EGD and proceed accordingly with further recommendations thereafter. Given this finding of distal esophagitis, I elected to go ahead and add Carafate 1 gram p.o. q.i.d. to her medical regimen. Patient currently is also on Protonix 40 mg daily. MTDD
== END 2016-06-22 13:04 | disposition home or self-care (01) ==
LOC: SCU 09:50
PROVIDERS: ATTEND Surgery
DX: K21.0 Gastro-esophageal reflux disease with esophagitis (principal); K22.2 Esophageal obstruction; K22.10 Ulcer of esophagus without bleeding; R13.10 Dysphagia, unspecified; Z87.19 Personal history of other diseases of the digestive system
CPT/HCPCS: 43239; 43249; J2405; J2704; J7120